=== PATIENT | male | born 1950 | race Caucasian/White ===

== ENCOUNTER 2018-04-02 05:16 | Inpatient (IN) ==
[2018-04-02] MEDS ORDERED: ceFAZolin Inj 2gm (Premix) 2 GM/50 ML BAG IV ONE ×2 (05:26→06:00)
[2018-04-02] MEDS ORDERED: Vancomycin Inj 1gm vial ONE ×2 (05:26→06:44)
[2018-04-02] MEDS ORDERED: Lactated Ringers 1,000 ML PRIMARY IV ONE ×2 (05:26→06:00)
[2018-04-02] MEDS ORDERED: LIDOCAINE W/ SODIUM BICARB 0.5 ML SYR ONE (05:27)
[2018-04-02] MEDS ORDERED: Sodium Chloride 0.9% 250 ML ONE (05:27)
[2018-04-02] MEDS ORDERED: Nasal Sanitizer POPSWAB ampule 3 AMP (Nozin) PREOP DOSE ENOS SCH (06:00)
[2018-04-02] MEDS ORDERED: LIDOCAINE W/ SODIUM BICARB 0.5 ML SYR SUBD ONE (06:00)
[2018-04-02] MEDS ORDERED: LIDOCAINE MPF 2% - 5 ML (20 MG/1 ML) ONE ×2 (06:12→07:00)
[2018-04-02] MEDS ORDERED: Sodium Chloride 0.9% vial 40 ML ONE ×2 (06:44→07:04)
[2018-04-02] MEDS ORDERED: Gentamicin Inj 40 MG/ML VIAL ONE (06:44)
[2018-04-02] MEDS ORDERED: BUPivacaine Liposome/PF (Exparel) Inj 20ml vial INFIL ONE (06:45)
[2018-04-02] MEDS ORDERED: BACITRACIN 50,000 UNIT VIAL IRRIG ONE (06:45)
[2018-04-02] MEDS ORDERED: BUPivacaine Inj 0.25% PF - 10ml vial ONE (06:45)
[2018-04-02] MEDS ORDERED: ROCURONIUM 10 MG/1 ML - 5 ML VIAL IVP ONE (06:58)
[2018-04-02] MEDS ORDERED: MIDAZOLAM HCL 2 MG/2 ML VIAL ONE (06:59)
[2018-04-02] MEDS ORDERED: fentaNYL Inj 250 MCG/5 ML VIAL ONE (06:59)
[2018-04-02] MEDS ORDERED: PROPOFOL 10 MG/1 ML (200 MG/20 ML) VIAL IV ONE (07:00)
[2018-04-02] MEDS ORDERED: Propofol 1,000 MG/100 ML VIAL IV ONE ×2 (07:01→10:58)
[2018-04-02] MEDS ORDERED: REMIFENTANIL HCL 2 MG VIAL IV ONE (07:03)
[2018-04-02] MEDS ORDERED: LIDOCAINE HCL 2 % 10 ML JELLY URO-JECT TOPICAL ONE ×2 (07:20→07:42)
[2018-04-02] MEDS ORDERED: ePHEDrine Inj 50 MG/ML AMP ONE (08:03)
[2018-04-02] MEDS ORDERED: Sodium Chloride 0.9% 1,000 ML PRIMARY IV ONE ×2 (08:20→09:12)
[2018-04-02] MEDS ORDERED: KETAMINE HCL 100 MG/2 ML SYRINGE IV ONE (08:21)
[2018-04-02] MEDS ORDERED: ONDANSETRON 4 MG/2 ML VIAL ONE (12:13)
[2018-04-02] MEDS ORDERED: HYDROmorphone 2 MG/1 ML ONE (13:40)
[2018-04-02] MEDS: HYDROmorphone 2 MG/1 ML IVP PRN ×2 (13:41→14:11)
[2018-04-02] MEDS ORDERED: LIDOCAINE W/ SODIUM BICARB 0.5 ML SYR SUBD PRN (13:43)
[2018-04-02] MEDS ORDERED: PROMETHAZINE 25 MG/1 ML VIAL IM PRN ×2 (13:43→15:03)
[2018-04-02] MEDS ORDERED: fentaNYL Inj 100 MCG/2 ML VIAL IVP PRN (13:43)
[2018-04-02] MEDS ORDERED: ONDANSETRON 4 MG/2 ML VIAL IVP PRN ×2 (13:43→15:03)
[2018-04-02] MEDS ORDERED: Lactated Ringers 1,000 ML PRIMARY IV SCH (13:45)
[2018-04-02] MEDS ORDERED: TRANEXAMIC ACID 1,000 MG / 10 ML VIAL ONE (14:43)
[2018-04-02] MEDS ORDERED: Insulin Glargine SoloStar Inj 100 UNIT/ML INSULN.PEN SUBCUT SCH ×2 (15:03→19:00)
[2018-04-02] MEDS ORDERED: MAGNESIUM 400 MG/5 ML - 30 ML (MILK OF MAGNESIA) PO PRN (15:03)
[2018-04-02] MEDS ORDERED: Fleet Enema 133ml RECTAL PRN (15:03)
[2018-04-02] MEDS ORDERED: Vancomycin-PHA to Dose IV SCH (15:03)
[2018-04-02] MEDS ORDERED: oxyCODONE/APAP 7.5/325 Tab 1 TAB TAB PO PRN (15:03)
[2018-04-02] MEDS ORDERED: MAGNESIUM CITRATE 296 ML SOLUTION PO PRN (15:03)
[2018-04-02] MEDS ORDERED: BISACODYL 5 MG TABLET PO PRN (15:03)
[2018-04-02] MEDS ORDERED: oxyCODONE-ACETAMINOPHEN 5-325 TAB PO PRN (15:03)
[2018-04-02] MEDS ORDERED: Prochlorperazine Edisylate Inj 10mg/2ml vial IVP PRN (15:03)
[2018-04-02] MEDS ORDERED: Ondansetron ODT Tab 4 MG TAB PO PRN (15:03)
[2018-04-02] MEDS: MORPHINE SULFATE 2 MG/1 ML IVP PRN ×2 (15:25→19:21)
[2018-04-02] MEDS: oxyCODONE/APAP 10/325 Tab 1 EACH TAB PO PRN ×3 (15:52→20:56)
--- NOTE | 2018-04-02 16:49 | CRNA.PROGR ---
Anesthesia Recovery Phase I - Post Anesthesia Evaluation Patient's Condition on Arrival in Phase I: Stable Pain Level: 0
--- NOTE | 2018-04-02 16:49 | CRNA.PROGR ---
Anesthesia Time - Procedure/Recovery Time Start Date: 04/02/18 End Date: 04/02/18 Anesthesia : Time In: 07:29 Anesthesia : Time Out: 13:17 Anesthesia : Total Time: 348 - Total Anesthesia Time Total Anesthesia Time (minutes): 348 - Other Weight: 87.543 kg Height: 5 ft 8 in Body Mass Index (BMI): 29.3 Physical Status: P3 Anesthesia Type: General Anesthesia : ET
[2018-04-02] MEDS: ceFAZolin Inj 1 GM in Sodium Chloride 0.9% 100 ML IV SCH (17:23)
--- NOTE | 2018-04-02 18:03 | CONSULT ---
Consult Note - Consult Consult Date: 04/02/18 Requesting Physician: Dr. 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 Juárez today. The hospitalist service were consulted for management of medical issues. Patient was seen postoperatively he denied symptoms apart from pain his back and he received some pain medication prior. There is no nausea, no shortness of breath, no chest pain. Past Medical History Medical History: 1. History of diabetes been insulin since November last year. 2. History of hypertension. 3. History of hypercholesterolemia. 4. History of autoimmune disorder on Remicade infusion every 4 weeks, it sounded seronegative arthropathy Surgical History: 1. History of cholecystectomy. 2. History of carpal tunnel releases. 3. History of hernia surgery. 4. History of back surgery Family History: Reviewed an Not Pertinent Past Social History: He smokes 8 cigarettes a day, rarely drinks, no drugs. Lives in [place] Tobacco Use: Current Every Day Smoker In the Past 12 Months, Have Used or Abuse Any of the Following Substance: None Review of Systems - Review of Systems All Systems: Reviewed & No Additional Complaints Except as Stated Medication / Allergies Home Medications: Home Medications Medication Instructions Recorded Confirmed Type Lansoprazole [Prevacid] 30 mg ORAL BID cap 12/28/10 04/02/18 History Ramipril [Altace] 10 mg ORAL BID cap 12/28/10 04/02/18 History Simvastatin [Zocor] 80 mg ORAL DAILY tab 12/28/10 04/02/18 History Ezetimibe [Zetia] 10 mg PO DAILY 01/12/11 04/02/18 History infliximab 100 mg intravenous 100 mg IV Q4W ea 01/28/18 04/02/18 History solution insulin glargine (U-100) 100 54 unit SUBCUT QDAY ml 03/25/18 04/02/18 History unit/mL (3 mL) subcutaneous pen Hydrocodone/Acetaminophen 1 tab PO PRN PRN 04/01/18 04/02/18 History [Hydrocodone-Acetamin 5-325 mg] Insulin Glargine,Hum.rec.anlog 54 unit SQ DAILY 04/02/18 04/02/18 History [Basaglar Kwikpen U-100] Allergies/Adverse Reactions: Allergies Allergy/AdvReac Type Severity Reaction Status Date / Time codeine [Codeine] Allergy Intermediate NAUSEA Verified 04/01/18 08:48 abatacept [From Orencia] Allergy Nausea Verified 04/02/18 05:57 CONTRAST DYE Allergy Intermediate Anaphylaxis Uncoded 04/01/18 08:48 Exam - Vitals Vital Signs: Vital Signs Temperature 97 F Temperature Source Tympanic Pulse Rate [Pulse Oximeter] 58 Pulse Rate 72 Respiratory Rate 14 Blood Pressure [Left Arm] 108/68 Blood Pressure 106/81 Pulse Ox 100 Oxygen Flow Rate 2 Oxygen Delivery Method Nasal Cannula Height 5 ft 8 in Weight 193 lb - General General Appearance: No Acute Distress, Cooperative - Head Head Exam: Normal Inspection - Eye Eye Exam: POSITIVE: Normal Appearance - ENT ENT Exam: POSITIVE: Normal Exam - Respiratory Respiratory Exam: POSITIVE: Clear to Auscultation - Bilaterally - Cardiovascular Cardiovascular Exam: POSITIVE: RRR - GI/Abdominal GI/Abdominal Exam: POSITIVE: Normal Bowel Sounds, Non Tender, Non Distended, Soft, No Organomegaly - Rectal Rectal Exam: POSITIVE: Deferred - External Exam: POSITIVE: Deferred - Extremities Extremities Exam: POSITIVE: Normal Inspection Additional Extremities Exam Details: He is wearing LEIDA hose - Back Back Exam: POSITIVE: Normal Inspection - Neurological Neurological Exam: POSITIVE: Alert, Oriented x 3, CN II-XII Intact, No Facial Droop, Speech Intact / Clear - Psychiatric Psychiatric Exam: POSITIVE: Normal Affect Assessment and Plan - Patient Problems (1) History of diabetes mellitus, type II Current Visit: Yes Status: Acute Comment: Continue his previous medication will put Accu-Chek for him to check his blood sugar. Patient already ate. Code(s): Z86.39 - Personal history of other endocrine, nutritional and metabolic disease (2) History of hypertension Current Visit: Yes Status: Acute Comment: He is normally on Altace continue with it but I think for tonight I think we'll hold it as his blood pressure postsurgery is borderline. Code(s): Z86.79 - Personal history of other diseases of the circulatory system (3) Hypercholesterolemia Current Visit: Yes Status: Acute Comment: Same medication. Code(s): E78.00 - Pure hypercholesterolemia, unspecified (4) Back pain Current Visit: Yes Status: Acute Comment: Status post surgery management per Dr. Juárez he did write for pain medication for him and he consulted PT and OT. Code(s): M54.9 - Dorsalgia, unspecified
[2018-04-02] MEDS: INSULIN GLARGINE SUBCUT SCH (19:16)
[2018-04-02] MEDS: [UNRECOGNIZED DRUG - OTHER] SUBCUT SCH (19:16)
[2018-04-02] MEDS: DIAZEPAM 10 MG TABLET PO PRN (19:34)
--- NOTE | 2018-04-02 20:07 | NEURO.PROG ---
Subjective Post Op Day: 0 Pain Management: PO Banks Catheter: Yes Diet: Consistent carbohydrate Ambulating: Yes Additional Details: Awake and alert. Complaint of back pain. Pre-operative leg symptoms, pain, numbness, tingling resolved. Full dorsiflexion/plantarflexion bilaterally. PLAN; 1.) Continue post-operative antibiotics. 2.) Continue post-operative pain control. 3.) Advance diet. 4.) Mobilize. Objective : Data - Vital Signs Vital Signs and I&O: Vital Signs - Last Taken Temperature 97.8 F 04/02/18 17:30 Pulse Rate 77 04/02/18 17:30 Respiratory Rate 16 04/02/18 17:30 Blood Pressure 130/82 04/02/18 17:30 Pulse Ox 100 04/02/18 17:30 Intake and Output (24hr x 4 totals) 03/31/18 04/01/18 04/02/18 04/03/18 05:59 05:59 05:59 05:59 Intake Total 4500 / 4500 Output Total 980 / 980 Balance 3520 / 3520
[2018-04-02] MEDS ORDERED: RAMIPRIL 10 MG CAPSULE PO SCH (21:00)
[2018-04-02] MEDS: Simvastatin Tab 80 MG TAB PO SCH (22:00)
[2018-04-02] MEDS: NICOTINE 21 MG /DAY PATCH TRANSDERM SCH (22:01)
[2018-04-03] MEDS: ceFAZolin Inj 1 GM in Sodium Chloride 0.9% 100 ML IV SCH (00:50)
[2018-04-03] MEDS: oxyCODONE/APAP 10/325 Tab 1 EACH TAB PO PRN ×3 (00:50→09:07)
[2018-04-03] MEDS: DOCUSATE 100 MG CAPSULE PO PRN (04:46)
[2018-04-03] MEDS: DIAZEPAM 10 MG TABLET PO PRN (04:47)
[2018-04-03 04:59] LABS: BASOPHILS # (AUTO) 0.03 10*3/UL; BASOPHILS % (AUTO) 0.1 % (0-1); EOSINOPHILS # (AUTO) 0.06 10*3/UL; EOSINOPHILS % (AUTO) 0.3 % (0-8); Hematocrit [HCT] 47.3 % (42.0-52.0); Hemoglobin [HGB] 15.9 g/dL (14.0-18.0); LYMPHOCYTES # (AUTO) 3.48 10*3/uL; MEAN CORPUSCULAR HGB CONC 33.6 g/dL (33-37); MEAN CORPUSCULAR VOLUME 89.2 FL (80-90); MEAN PLATELET VOLUME 10.6 FL (7.4-12.2); MONOCYTES # (AUTO) 2.36 10*3/UL (0.3-0.8); MONOCYTES % (AUTO) 10.6 % (5-15); NEUTROPHILS # (AUTO) 16.27 10*3/UL
[2018-04-03 05:25] LABS: BLOOD UREA NITROGEN 15 mg/dL (7-22); BUN/CREATININE RATIO 16.66 (6-20)
--- NOTE | 2018-04-03 06:23 | NEURO.PROG ---
Subjective Post Op Day: 1 Pain Management: PO Singh Catheter: Yes Diet: Regular Additional Details: Mr. Hastings is awake and alert. He complained of feeling weak in all extremities but denies paresthesias. His dorsi and plantar flexion are strong bilaterally. He had a fever of 100 in the night that normalized with standing at the bedside and taking deep breaths. He has had minimal drainage from his wound drain and plan will be to discontinue the drain after he has been up in the room this morning. Plan for today is to mobilize. After he's been up this morning the plan will be to discontinue his singh catheter. Dr. Juárez was here for rounds. Objective : Data - Labs CBC and BMP: 04/03/18 04:35 - Vital Signs Vital Signs and I&O: Vital Signs - Last Taken Temperature 97.4 F 04/03/18 05:02 Pulse Rate 84 04/03/18 04:21 Respiratory Rate 16 04/03/18 04:21 Blood Pressure 125/74 04/03/18 04:21 Pulse Ox 93 04/03/18 04:21 Intake and Output (24hr x 4 totals) 04/01/18 04/02/18 04/03/18 04/04/18 05:59 05:59 05:59 05:59 Intake Total 6550 / 6550 Output Total 1830 / 1830 Balance 4720 / 4720
[2018-04-03 06:25] LABS: PLATELET MORPHOLOGY COMMENT NORMAL MORPHOLOGY (NORM); RBC MORPHOLOGY COMMENT NORMAL MORPHOLOGY (NORM); WBC MORPHOLOGY COMMENT NORMAL MORPHOLOGY (NORM)
[2018-04-03] MEDS: PANTOPRAZOLE 40 MG TABLET PO SCH (06:54)
[2018-04-03] MEDS: EZETIMIBE 10 MG TABLET PO SCH (09:08)
[2018-04-03] MEDS: RAMIPRIL 10 MG CAPSULE PO SCH ×2 (09:08→20:03)
--- NOTE | 2018-04-03 09:09 | PTI REPORT ---
Thank you for the referral of Stephen Hastings. He was seen on 04/02/18 for an inpatient evaluation status post lumbar fusion. SUBJECTIVE: The patient is a 67-year-old male who underwent a lumbar fusion earlier today. The patient reports a pain level of 9/10 on the verbal analog scale (0=no pain, 10=worst pain) at this time. Per nursing report, he has had Morphine. They have discussed with the patient about trying to sit up and that maybe a change in his position may help decrease his pain. The patient states he is willing to try to sit up on the edge of the bed. The patient states he is from [place] where he lives in a ranch style home. He states he was not using any assistive devices prior to his surgery. He also reports no falls in the last three months. The patient states that prior to his surgery he was independent with all ADLs. He states that he was limited with his walking prior to surgery secondary to back pain. He reports he was able to walk approximately 250 feet before requiring a rest break due to pain. The patient also states that he was having numbness, tingling, and weakness into his bilateral lower extremities with his right more affected vs. his left. PAST MEDICAL HISTORY: Past medical history can be found in the patient's medical record. OBJECTIVE FINDINGS: General observations: The patient was alert and oriented to setting upon PT arrival. Nursing was just finishing admitting the patient. We did discuss to have the patient try sitting edge of bed to see if that would help with his pain as he reports a pain level of 9/10. The patient's blood pressure was 125/82. His heart rate was 70 beats per minute. His oxygen saturation was 97% on two liters of oxygen. The patient was instructed on lumbar precautions including no bending/lifting/twisting and to always wear his brace when he is up. The patient's brace was in his room and he was fit for that prior to his surgery. The patient was instructed on gentle nerve glides and the importance of getting up and walking along with how to properly log roll into and out of bed. It was demonstrated how to log roll out of bed. Bed mobility: The patient required max cueing to go from a supine position to roll onto his left side. Once the patient was on his left side, he attempted to complete the log roll but was unable to secondary to weakness so he did require mod assist of one in order to help maneuver his trunk as he brought his legs down. The patient was able to sit for approximately one second before he flung himself back onto the bed, stating that he had intense pain down his left lower extremity when he first sat up. The patient was then assisted to help roll completely back onto his back. The patient required assist of two in order to perform bed mobility to scoot up in the bed. The patient did complain of pain, and due to weakness, states that he was not able to perform bed mobility. Once he was scooted back up into the bed, his SCDs were plugged back in, a rolled up blanket was placed underneath his lower extremities, and the head of the bed was elevated. The patient did state a slight improvement in pain with the head of the bed elevated. We further elevated that once his dinner did arrive toward the end of the treatment. ASSESSMENT: The patient has fair rehab potential secondary to his age and his pain level that he is having at this time. Problem List: Patient is status post lumbar fusion Low back pain Weakness of bilateral lower extremities Short-Term Goals: To be met by discharge from inpatient: Patient will be able to don and doff his brace safely and independently. Patient will be able to perform a log roll into and out of bed safely, correctly, and independently. Patient will be able to ambulate at least 150 feet with least restrictive assistive device safely and independently. Patient will be able to ascend and descend at least 5 stairs safely and independently in order to return back home. Long-Term Goals: To be met following discharge from inpatient: Patient may be seen by outpatient physical therapy if deemed necessary by his surgeon. TREATMENT PLAN: Patient will be seen B.I.D during the week and one time per day over the weekend as an inpatient to address the above goals and objectives. INITIAL TREATMENT: Treatment today consisted of the initial evaluation and one unit of functional activity. The therapist did bring a walker into the room and the patient's brace is in the room. That way as his pain is under better control later this evening, he will be allowed to get up with nursing staff as long as his brace is in place. He most likely will need the use of the walker due to the weakness in his lower extremities for the first couple of times he is up. We will then assess further from there. LITTLE
--- NOTE | 2018-04-03 10:04 | PDOC(PROG) ---
Date of Service: 04/03/18 Time of Service: 09:30 Interval History: Subjective Patient was complaining from pain his back he just received some Percocet. He said last night he had some fever but apparently that's resolved today. No other symptoms. He Feels overall weak. Objective : Data - Labs CBC and BMP: 04/03/18 04:35 04/03/18 04:35 Objective : Exam - General General Appearance: No Acute Distress, Cooperative - Head Head Exam: Normal Inspection - Eye Eye Exam: Normal Appearance - ENT ENT Exam: Normal Exam - Neck Neck Exam: Normal Inspection - Respiratory Respiratory Exam: Clear to Auscultation - Bilaterally - Cardiovascular Cardiovascular Exam: RRR - GI/Abdominal GI/Abdominal Exam: Normal Bowel Sounds, Non Tender, Non Distended, Soft, No Organomegaly - Rectal Rectal Exam: Deferred - External Exam: Deferred Exam: Deferred - Extremities Extremities Exam: Normal Inspection - Back Back Exam: Normal Inspection - Neurological Neurological Exam: Alert, Oriented x 3, CN II-XII Intact, No Facial Droop, Speech Intact / Clear - Psychiatric Psychiatric Exam: Flat Affect Assessment and Plan - Patient Problems (1) History of diabetes mellitus, type II Current Visit: Yes Status: Acute Comment: Continue current medications. Continue checking his blood sugars. Code(s): Z86.39 - Personal history of other endocrine, nutritional and metabolic disease (2) History of hypertension Current Visit: Yes Status: Acute Comment: We restarted his ramipril today Code(s): Z86.79 - Personal history of other diseases of the circulatory system (3) Hypercholesterolemia Current Visit: Yes Status: Acute Comment: Same med. Code(s): E78.00 - Pure hypercholesterolemia, unspecified (4) Back pain Current Visit: Yes Status: Acute Comment: Status post surgery, management per Dr. Juárez. We will start PT and OT today. Code(s): M54.9 - Dorsalgia, unspecified (5) Leukocytosis Current Visit: Yes Status: Acute Comment: This may be secondary to the surgery. Will watch it. No fever today. 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 Code(s): D72.829 - Elevated white blood cell count, unspecified
--- NOTE | 2018-04-03 11:58 | GEN.OPNOTE ---
Operative Note Surgery Date: 04/02/18 Preoperative Diagnosis: 1. Low back pain. 2. Bilateral lower extremity radicular symptoms right greater than left. 3. Focal advanced lumbar degenerative disc disease at L4-5. 4. Focal moderately advanced facet arthropathy and hypertrophy particularly on the right at L4-5. 5. Broad based disc bulge with superimposed left lateral herniated nucleus pulposus L4-5. 6. Bilateral L4-5 lateral recess stenosis. 7. Bilateral L4-5 neural foraminal stenosis.1. Low back pain. 2. Bilateral lower extremity radicular symptoms right greater than left. 3. Focal advanced lumbar degenerative disc disease at L4-5. 4. Focal moderately advanced facet arthropathy and hypertrophy particularly on the right at L4-5. 5. Broad based disc bulge with superimposed left lateral herniated nucleus pulposus L4-5. 6. Bilateral L4-5 lateral recess stenosis. 7. Bilateral L4-5 neural foraminal stenosis. Postoperative Diagnosis: 1. Low back pain. 2. Bilateral lower extremity radicular symptoms right greater than left. 3. Focal advanced lumbar degenerative disc disease at L4-5. 4. Focal moderately advanced facet arthropathy and hypertrophy particularly on the right at L4-5. 5. Broad based disc bulge with superimposed left lateral herniated nucleus pulposus L4-5. 6. Bilateral L4-5 lateral recess stenosis. 7. Bilateral L4-5 neural foraminal stenosis. Procedure: 1.) Partial L4 laminectomy with medial facetectomies and foraminotomies for decompression of the L4-5 level including removal of a left L4-5 herniated nucleus propulsis and removal of bony arthropathy of the facet joints and ligamentous hypertrophy producing bilateral lateral recess and neuroforaminal stenosis. (CPT code: 43470). 2.) Athrodesis, combined posterolateral and posterior interbody technique, L4-5. (CPT code: 68014). 3.) Insertion of an 9 mm x 11 mm x 28 mm Tritanium PL titanium interbody cage filled in the center with autograft into the L4-5 interspace for fusion of the L4-5 interspace. (CPT code: 38815). 4.) Posterolateral non-segmental instrumentation, L4-5 using the Footway Sukhjinder 3 pedicle screw and leora system. (CPT code: 57906). 5.) Use of autograft harvested from the same incision cleaned of soft tissue and morselized for interbody and posterolateral fusion. (CPT code: 12099). 6.) Use of 10 cc StNing by [employer] Vitoss Bimodal synthetic bone fusion product (implantable allograft), 2 cc Jt Biologics Active Matrix (implantable allograft), 30 cc Ni BIO DBM Plus Putty w/Cancellous (implantable allograft) for interbody and posterolateral fusion. (CPT code: 14372). 7.) Use of Bitvore Computer Assisted Neuronavigation system for cannulization of the L4 and L5 pedicles for the subsequent placement of the the L4 and L5 pedicle screws bilaterally. (CPT code: 63851). 8.) Use of intra-operative fluoroscopy for localization or correct surgical level, for confirmation of the final position of the intervertebral cage and for confirmation of the final position of the posterolateral hardware elements. 9.) Use of intra-operative neuromonitoring including free running EMG's, triggered EMG's, and SSEP's. Surgeon: Matthew Juárez MD Quality Assistant: ALESSIA Briseno Anesthesia Provider: Dez Jackson CRNA Anesthesia Type: General Estimated Blood Loss (mL): 300 Fluids: See anesthesia record Pathology: None Indications: Mr. Hastings is a 67 year old gentleman with low back and bilateral leg pain. He has pain that runs down both of his legs with the right being worse than the left. He can only walk for about 500 feet before his pain is so severe that he needs to sit down. He reports bilateral leg weakness and stumbles often when walking. Mr. Hastings has had previous back surgery, a L5-S1 microlumbar discectomy performed by Dr. Gonzalez in 2004. He did well after that surgery. Mr. Hastings had a recent lumbar MRI scan demonstrating advanced degenerative disc disease at the L4-5 level. There is broad based disc protrusion at this level and there is herniated disc material laterally on the left that extends into the lateral recess medial to the left L5 pedicle. There is bilateral lateral recess stenosis secondary to bony arthropathy and hypertrophy with a broad based disc bulge and ligamentous hypertrophy. There is bilateral L4 neural foraminal stenosis secondary to the collapse of the disc space and also disc material in the proximal neuroforamen. Mr. Hastings symptom's did not receive any durable relief expectant managment or non-operative therapies. We discussed that a L4-5 transforaminal lumbar interbody fusion and posterolateral instrumented fusion might give him durable relief of his symptoms. He wished to proceed with that procedure. He presents today, 04/02/18 for that procedure. Findings: 1.) Left paracentral L4-5 herniated nucleus propulsis. 2.) Marked bilateral L4-5 facet arthropathy and hypertrophy. 3.) Bilateral lateral recess stenosis secondary to bony arthropathy and ligamentous hypertrophy. Complications: None Operative Summary: Mr. Hastings was met in the pre-operative area. His surgical history and physical in his chart was reviewed. I reviewed with him the procedure to be performed and we were in agreement on the procedure and this matched what was written on the patient's consent form. I answered any questions that he or his had before he was taken back to the operating room suite. Mr. Hastings was brought back to the operating room suite. He was put under general anesthesia and intubated by the anesthesia staff. He had a Banks catheter placed in his bladder for the procedure. He had pneumatic compression hose placed on his lower legs bilaterally. Mr. Hastings was carefully rolled over onto the Ankush surgical table. His arms were gently positioned upwards with his shoulders abducted less than 90. His arms were well-padded with foam padding on top of the padding the surgical armboards. The region of his chest and axilla was checked bilaterally to make sure that there were no pressure points over the region of the brachial plexus bilaterally. His nipples were checked be below the chest pad of the Ankush table with no pressure points. All bony prominences were well padded. His Banks catheter was checked be free from kinks. His pneumatic compression hose was attached to a pneumatic compression device. The C-arm fluoroscopy unit was used to help localize the skin incision for the approach to the intended surgical level. The skin was marked with a skin marker and crosshatches were made with a skin marker as well. Ms. Hastings was prepped and draped in the usual and standard fashion. He was given 2 g of Ancef and a gram of vancomycin IV for perioperative antibiosis. A standard surgical timeout was performed identifying the correct patient, the correct procedure, and the correct equipment being available for the procedure. The intended skin incision was injected subcutaneously with quarter percent Marcaine with 1 in 200,000 epinephrine. 10 mL of local anesthetic was used. The skin was incised with a 10 blade scalpel and all dermal and superficial bleeding points were controlled with bipolar cautery. Dissection was continued down to the subcutaneous tissue to the lumbar fascia. The lumbar fascia was incised along the borders of the spinous processes and subperiosteal dissection was performed down the spinous processes and out over the lamina with Bovie cautery. When the inferior aspect of the lamina was identified a [place] 4 was placed underneath the lamina and the level was localized with lateral fluoroscopy. Continued subperiosteal dissection was performed until the final exposure was of the inferior aspect the L3 lamina, the L4 lamina, and the L5 lamina. The dissection was continued laterally over the L3-4 and L4-5 facet joints and out laterally over the L4 and L5 transverse processes. Cerebellar and Gelpi retractors were placed for self-retaining retraction. Soft tissue was cleaned over the posterior aspect of the spine using Bovie cautery as well as a large Leksell rongeur. Extensive decortication of the L4 and L5 transverse processes as well as the lateral aspect of the L3-4 facet joint and the lateral and posterior aspect of the L4-5 facet joint after removing the hypertrophied posterior aspect of the L4-5 facet joint with a large Leksell rongeur bilaterally was performed. The L5 lamina was decorticated as well. All decortication was performed with a high-speed [employer] electric drill with a matchstick bit. The bone dust created was collected and saved to be used as autograft for the fusion portion of the procedure. The Ni neuro navigation reference arc was securely attached to the L3 spinous process and a spin was performed with the [employer] 3-D fluoroscopy unit. The Footway neuro navigation pedicle probe was then used to cannulate the L4 and L5 pedicles bilaterally. A Jamshidi needle was then inserted into the left L4 pedicle and 5 mL of vertebral body bone marrow was collected and used to saturate 10 mL of the [place] Vitoss synthetic bone product intended for the posterior lateral fusion. The internal aspects of the pedicles were palpated with a small ball-tip instrument. The pedicles were then tapped with the appropriate size [place] Sukhjinder 3 pedicle tap. The internal aspect of the pedicles were palpated with a small ball-tip instrument again. The pedicle screws were then placed. 6.5 x 60 mm pedicle screws were placed into the L4 pedicles bilaterally. 6.5 mm x 55 mm pedicle screws were placed into the L5 pedicles bilaterally. The pedicle screws obtained good purchase in the pedicle and vertebral body bone at each level bilaterally. The pedicle screws were then interrogated with triggered EMGs all demonstrating sufficiently high impedance indicating that the pedicle screws were not in close proximity to nerve structures. Another spin was performed with the [employer] 3-D fluoroscopy unit providing further confirmation that the pedicle screws were indeed confined within the confines of the pedicles at each level bilaterally and that the pedicle screws were all bi-cortical or nearly bi-cortical in purchase as intended. Attention was turned to the decompression portion of the procedure. The L4 spinous process was removed with a large Leksell rongeur. The L4 lamina was thinned down with the same instrument. A partial laminectomy of L4 with medial facetectomies and foraminotomies bilaterally was then performed with the [employer] high-speed drill with a matchstick bit as well as with various size Kerrison punches. Surgical findings included marked arthropathy and hypertrophy of the L4-5 facet joints bilaterally, central canal stenosis, severe bilateral lateral recess stenosis and severe bilateral neuroforaminal stenosis secondary to bony arthropathy and ligamentous hypertrophy. The medial facetectomy on the left was extended laterally to provide the proper exposure needed for the interbody fusion intended for this level. The lateral extension of the medial facetectomy was performed with a high-speed drill with a matchstick bit. A [place] 4 instrument was used to carefully dissect the soft tissue adjacent to the takeoff of the L5 nerve root identifying the L4-5 disc space. The Rico nerve root retractor was used to gently retract the thecal sac and the takeoff the L5 nerve root and epidural veins over the disc space were coagulated with bipolar cautery turned down to a low setting and then cut with microscissors. An annulotomy was performed in the L4-5 disc space with a 15 blade scalpel and disc material being removed with a pituitary rongeur. Additional disc and cartilaginous endplate was loosened in the disc space using the K2 disc space khurram in 1 mm increments from 7 mm disc space shaver to a 9 mm disc space shaver. Between the disc space khurram additional disc material was removed from the interspace using pituitary rongeur. The large Rolando down-biting curet was used to loosen disc laterally in the L4-5 disc space bilaterally with the fragments being removed with a pituitary rongeur. The large Rolando down-biting curet was then used to decorticate the inferior L4 endplate and the superior L5 endplate in the L4-5 interspace. The interspace was then irrigated with bacitracin irrigation. Approximately 3-3.5 cc of Ni BIO DBM Plus Putty w\Cancelleous (implantable allograft) was then placed in the interspace and moved anteriorly with a bone tamp. The interspace was then sized for the appropriate size lumbar interbody cage. A 9 mm x 11 mm x 28 mm Tritanium PL titanium lumbar interbody cage was selected and filled in the center with autograft and inserted into the L4-5 interspace using the regulator pin inserter. The cage was gently countersunk and rotated with a bone tamp and mallet. The cage obtained good purchase between the L4 and L5 endplates. The final position of the intervertebral cage was confirmed with lateral fluoroscopy. Attention was turned back to the leads rotation portion of the procedure. Two 6.0 mm x 40 mm pre-bent Ni Sukhjinder 3 titanium leora were selected and placed in the tulips of the L4 and L5 pedicle screws bilaterally. Set screws were placed over the rods in the tulips of each of the pedicle screws which were tightened down hand tight initially and then tightened down to their final tightness using the torque/counter torque device. The surgical site was irrigated with a liter of Vashe solution . The surgical site was then pulse lavaged with 3 L of vancomycin/bacitracin/gentamicin solution. The paraspinous musculature was retracted and 10 mL of [place] Vitoss Bimodal synthetic bone product (implantable allograft) saturated with 5 mL of vertebral body bone marrow and 5 mL of 2cc of RewardLoop Biologics Active Matrix (implantable allograft) diluted to 8 mL was then placed lateral to the hardware construct on each side from the L4 transverse process to over the L5 transverse process bilaterally. The remaining autograft was then split and placed lateral to the hardware construct as well. The remaining approximately 27 mL of Ni BIO DBM Plus Putty w/Cancelleous (implantable allograft) was then split with half of this product being placed lateral to the hardware construct over the bone chips and Vitoss synthetic bone product from the L4 transverse process to the L5 transverse process bilaterally to provide extra bone product for fusion and also told bone chips in place. The canal lateral recesses were inspected for any bone chips and any identified were removed with forceps. The canal lateral recesses were then irrigated with a small amount bacitracin irrigation which was subsequently removed with suction. Floseal hemostatic agent was then placed in the lateral recesses and over all exposed dural elements. A piece of compressed Gelfoam was then placed across the canal. A medium Hemovac drain was placed in the surgical site. The closure portion of the procedure was begun. The lumbar fascia was closed tightly with #1 Vicryl suture in an interrupted fashion. The surgical site was irrigated again with bacitracin irrigation. The deep subcutaneous tissue and fascia was re-approximated with 2-0 Vicryl suture in an interrupted fashion. 20 mL of Exoperel diluted with 20 mL of 1/4 percent Marcaine was then injected all around the incision in the subcutaneous tissue. The remaining 3 mL of the diluted RewardLoop Biologics Active Matrix was injected around the surgical site in the subcutaneous tissue. The dermis and superficial subcutaneous tissue was reapproximated with 3-0 Vicryl suture in an inverted interrupted fashion. The [place] drape was pulled back from the skin edges and the final layer of closure was performed surgical stainless steel bree. The incision was cleansed with bacitracin soaked sponge and then dried with sterile dry sponge. The incision was then dressed with a Covaderm dressing after using skin prep around the incision. All surgical drapes removed from Mr. Hastings. He was carefully rolled over onto the PACU stretcher. He was awoken and extubated by the anesthesia staff. he was taken the recovery room in stable condition. All surgical counts reported as correct by the scrub and circulating personnel. A physician's customer assistant, Mrs. Candi Crane PA-C, assisted with the procedure including the exposure and closure portions of the procedure. She provided irrigation and suctioning throughout the procedure. She skillfully and carefully retracted the nerve structures during the more critical portions of the procedures such as the discectomy and intervertebral cage placement portions of the procedure.
--- NOTE | 2018-04-03 14:17 | PT AM DAY ---
Diagnosis : Lumbar Fusion AM - Physical Therapy S: The patient reports he doesn't feel like he will be able to get up on his own, let alone do any ambulatory activities that nursing and therapy want. O: Therapy started with reviewing the criteria to be met for discharge home, which he had a verbal understanding of. The patient was asked to transfer himself from supine to edge of bed, which took the patient longer than 10 minutes with constant verbal cues for proper lumbar precautions and ultimately required max assist x1. While in the seated position we attempted to don the back brace that the patient had been fitted to prior to surgery and that he insisted on having; however, he was unable to don or doff the brace which no longer fit due to the bloating from surgery. The patient insisted on having a larger size. Both the patient and his were given verbal education on being charged out a second back brace. When the XL [place] back brace came, the patient was unable to help with any type of donning and it was dependently placed on the patient by the therapist with verbal education to the spouse. The patient performed two sit to stand transfers with verbal and tactile cues for proper hand placement. He was able to stand at best up to 45 seconds before an uncontrolled fall back into bed. Our goal was to ambulate or at least have a weight on the scale; however, the patient was unable to perform any walker mobility due to overall fatigue. The patient was sat edge of bed and required max assist x2 for bed mobility from edge of bed to supine. A: Nursing was notified of the patient's condition and she contacted and spoke with Dr. Juárez as well as Candi Crane and there was nothing in surgery that should be causing his overall weakness. It was decided that it was due to his excessive placement of pain medication. It should be noted that throughout the entire treatment today the patient did not complain of pain, just complaints of weakness. The patient's spouse was present and she states prior to surgery the patient was able to perform all bed mobility, ambulatory activities, and transfers independently without any difficulty. It was decided with nursing that they were going to decrease the amount of pain medication being used and hopefully the patient's physical abilities will increase and we will progress with more functional activities including ambulatory activities within his room as well as stepping up on the scale and transferring to the chair. P: Continue seeing patient BID during the week and one time per day over the weekend for transfers, ambulation, and range of motion/strengthening exercises. MTDD
[2018-04-03] MEDS: HYDROcodone-APAP 5 MG -325 MG TABLET PO PRN ×2 (14:19→18:17)
--- NOTE | 2018-04-03 15:12 | PT.PROG ---
Progress Note Progress Note: S. Patient stated he is feeling much better than this morning, he rates his pain as a 6/7 out of 10. O. Patient performed log roll then stood at the edge of bed then stepped up onto the scale and ambulated 8 feet then sat in the chair where he was left with nursing. A. Patient tolerated bed mobility and ambulation fair, he was struggling with weakness during ambulation and had to sit. He would continue to benefit from skilled therapy to increase strength, mobility and safety at this time. P. Continue POC.
[2018-04-03] MEDS: Simvastatin Tab 80 MG TAB PO SCH (20:02)
[2018-04-03] MEDS: INSULIN GLARGINE SUBCUT SCH (20:03)
[2018-04-03] MEDS: [UNRECOGNIZED DRUG - OTHER] SUBCUT SCH (20:03)
[2018-04-03] MEDS: NICOTINE 21 MG /DAY PATCH TRANSDERM SCH (20:03)
[2018-04-03] MEDS: Patch Removal PATCH TRANSDERM SCH (20:04)
[2018-04-03] MEDS ORDERED: Acetaminophen 1000mg Inj 1,000 MG/100 ML VIAL IV PRN (20:48)
[2018-04-03] MEDS: HYDROcodone-APAP 10 MG-325 MG TABLET PO PRN (21:03)
[2018-04-04] MEDS: HYDROcodone-APAP 10 MG-325 MG TABLET PO PRN ×5 (02:19→20:06)
[2018-04-04 05:30] LABS: BASOPHILS # (AUTO) 0.02 10*3/UL; BASOPHILS % (AUTO) 0.1 % (0-1); EOSINOPHILS # (AUTO) 0.09 10*3/UL; EOSINOPHILS % (AUTO) 0.6 % (0-8); Hematocrit [HCT] 43.3 % (42.0-52.0); Hemoglobin [HGB] 14.3 g/dL (14.0-18.0); LYMPHOCYTES # (AUTO) 2.38 10*3/uL; MEAN CORPUSCULAR HEMOGLOBIN 29.8 PG (27-31); MEAN CORPUSCULAR VOLUME 90.2 FL (80-90); MEAN PLATELET VOLUME 10.8 FL (7.4-12.2); MONOCYTES # (AUTO) 1.57 10*3/UL (0.3-0.8); NEUTROPHILS # (AUTO) 11.55 10*3/UL; NEUTROPHILS % (AUTO) 73.8 % (50-80)
[2018-04-04 05:46] LABS: PLATELET MORPHOLOGY COMMENT NORMAL MORPHOLOGY (NORM); RBC MORPHOLOGY COMMENT NORMAL MORPHOLOGY (NORM); WBC MORPHOLOGY COMMENT NORMAL MORPHOLOGY (NORM)
[2018-04-04] MEDS: PANTOPRAZOLE 40 MG TABLET PO SCH (07:14)
[2018-04-04] MEDS: RAMIPRIL 10 MG CAPSULE PO SCH ×2 (09:53→20:00)
[2018-04-04] MEDS: EZETIMIBE 10 MG TABLET PO SCH (09:54)
--- NOTE | 2018-04-04 10:37 | NEURO.PROG ---
Subjective Post Op Day: 2 Pain Management: PO Banks Catheter: No Flatus: Yes Diet: Regular Ambulating: Yes Additional Details: Mr Hastings is awake and alert, feeling much better today. He has strong dorsi and plantar flexion without paresthesias. He has ambulated in the cervantes to the desk. His V/S are stable and his incision is dry and intact. He has good bowel sounds and flatus. Will continue bowel protocol with the goal of bowel movement today. Plan is also to continue to mobilize. Plan for discharge Saturday at this point. Objective : Data - Labs CBC and BMP: 04/04/18 04:48 04/03/18 04:35 - Vital Signs Vital Signs and I&O: Vital Signs - Last Taken Temperature 98 F 04/04/18 06:28 Pulse Rate 84 04/04/18 06:28 Respiratory Rate 16 04/04/18 07:00 Blood Pressure 132/79 04/04/18 06:28 Pulse Ox 89 04/04/18 06:28 Intake and Output (24hr x 4 totals) 04/02/18 04/03/18 04/04/18 04/05/18 05:59 05:59 05:59 05:59 Intake Total 6550 / 6550 1590 / 1590 370 / 370 Output Total 1830 / 1830 1030 / 1030 150 / 150 Balance 4720 / 4720 560 / 560 220 / 220
--- NOTE | 2018-04-04 11:18 | PDOC(PROG) ---
Interval History: Patient is doing well postop no complaints other than some pain but he is getting medication for this no chest pain nausea or vomiting Objective : Data - Labs CBC and BMP: 04/04/18 04:48 04/03/18 04:35 Objective : Exam - Respiratory Respiratory Exam: Clear to Auscultation - Bilaterally, Breathing Non Labored, Normal To Percussion, Normal to Percussion and Palpation - Cardiovascular Cardiovascular Exam: RRR, No Murmur, No Clicks, No Gallops, No Rubs, PMI Non-Displaced - GI/Abdominal GI/Abdominal Exam: Normal Bowel Sounds, Non Tender, Non Distended, Soft, No Masses, No Hepatomegaly, No Splenomegaly, No Organomegaly Assessment and Plan - Patient Problems (1) History of diabetes mellitus, type II Current Visit: Yes Status: Acute Comment: Stable at present time Code(s): Z86.39 - Personal history of other endocrine, nutritional and metabolic disease (2) History of hypertension Current Visit: Yes Status: Acute Comment: Stable at present time Code(s): Z86.79 - Personal history of other diseases of the circulatory system (3) Hypercholesterolemia Current Visit: Yes Status: Acute Code(s): E78.00 - Pure hypercholesterolemia, unspecified (4) Back pain Current Visit: Yes Status: Acute Comment: Status post surgery and defer to neurosurgery team for PTOT and discharge orders and follow-up Code(s): M54.9 - Dorsalgia, unspecified (5) Leukocytosis Current Visit: Yes Status: Acute Comment: Most likely secondary to surgery improved today Code(s): D72.829 - Elevated white blood cell count, unspecified
--- NOTE | 2018-04-04 11:56 | PT.PROG ---
Progress Note Progress Note: S. Patient stated that he is feeling better this morning. O. Patient ambulated 60 feet in the cervantes and back to his room where he was left in his chair. A. Patient tolerated ambulation fair, he was able to ambulate with min assist and standard walker, however became fatigued within the last 10 feet to the chair, he became unsteady however was able to make it to the chair. He would continue to benefit from skilled therapy to increase strength, endurance and safety at this time. P. Continue POC.
--- NOTE | 2018-04-04 15:42 | PT.PROG ---
Progress Note Progress Note: S. Patient stated that he is not feeling well this afternoon, he agreed to walk however. O. Patient transferred from supine to standing then ambulated approximately 40 feet to the wheelchair and was wheeled to the shower where he was left with OT for further therapy. A. Patient tolerated ambulation poor, he was required min to mod assist with ambulation and became very fatigued and in the last 10 feet, he would continue to benefit from skilled therapy to meet established goals at this time. P. Continue POC.
[2018-04-04] MEDS: NICOTINE 21 MG /DAY PATCH TRANSDERM SCH (19:59)
[2018-04-04] MEDS: [UNRECOGNIZED DRUG - OTHER] SUBCUT SCH (19:59)
[2018-04-04] MEDS: INSULIN GLARGINE SUBCUT SCH (19:59)
[2018-04-04] MEDS: Simvastatin Tab 80 MG TAB PO SCH (20:00)
[2018-04-04] MEDS: Patch Removal PATCH TRANSDERM SCH (20:07)
[2018-04-05] MEDS: DOCUSATE 100 MG CAPSULE PO PRN (02:00)
[2018-04-05] MEDS: HYDROcodone-APAP 10 MG-325 MG TABLET PO PRN ×2 (02:48→08:44)
[2018-04-05] MEDS: PANTOPRAZOLE 40 MG TABLET PO SCH (07:16)
[2018-04-05] MEDS: NYSTATIN 100000 UNIT/1 ML - 5 ML UD CUP PO SCH ×2 (08:44→21:06)
[2018-04-05] MEDS: RAMIPRIL 10 MG CAPSULE PO SCH ×2 (08:45→21:05)
[2018-04-05] MEDS: EZETIMIBE 10 MG TABLET PO SCH (08:45)
--- NOTE | 2018-04-05 09:38 | NEURO.PROG ---
Subjective Post Op Day: 3 Pain Management: PO Banks Catheter: No Flatus: Yes Diet: Regular Ambulating: Yes Additional Details: Mr. Hastings is awake and alert. He is complaining of generalized weakness. His grasp is equally weak and his dorsi and planter flexion and hip flexion are also equally weak. He believes it is because he has not gotten his Remicade for greater than 30 days, and this is what he feels like without it. He has ambulated this morning, doing somewhat better than yesterday V/S are stable and his incision is dry and intact. I spoke with Dr. Juárez regarding the need for continued rehab and followup with Dr. Ria Washington regarding his autoimmune disorder. Dr. Juárez recommended an [facility]ys Hernandez consult. The patient and his agreed this would work for him. Initial contact has been made with Gladys Hernandez. Objective : Data - Labs CBC and BMP: 04/05/18 09:43 04/05/18 09:43 - Vital Signs Vital Signs and I&O: Vital Signs - Last Taken Temperature 97.9 F 04/05/18 07:20 Pulse Rate 89 04/05/18 07:20 Respiratory Rate 20 04/05/18 07:20 Blood Pressure 149/89 04/05/18 07:20 Pulse Ox 93 04/05/18 07:20 Intake and Output (24hr x 4 totals) 04/03/18 04/04/18 04/05/18 04/06/18 05:59 05:59 05:59 05:59 Intake Total 6550 / 6550 1590 / 1590 990 / 990 Output Total 1830 / 1830 1030 / 1030 580 / 580 Balance 4720 / 4720 560 / 560 410 / 410
[2018-04-05 09:48] LABS: Hematocrit [HCT] 41.9 % (42.0-52.0); Hemoglobin [HGB] 14.4 g/dL (14.0-18.0); MEAN CORPUSCULAR HEMOGLOBIN 30.3 PG (27-31); MEAN CORPUSCULAR HGB CONC 34.4 g/dL (33-37); MEAN PLATELET VOLUME 10.3 FL (7.4-12.2); RED BLOOD COUNT 4.76 10^6/uL (4.70-6.10)
[2018-04-05 09:58] LABS: BLOOD UREA NITROGEN 22 mg/dL (7-22); BUN/CREATININE RATIO 31.42 (6-20); SERUM ALBUMIN 3.6 g/dL (3.5-4.8)
--- NOTE | 2018-04-05 10:10 | PDOC(PROG) ---
Interval History: Patient denies chest pain nausea or vomiting he states that multiple joints hurt knees and wrists shoulders he was treated with Remicade every month by Dr. Guidry he has not gotten his Remicade infusion because of his back fusion. Apparently he has some generalized weakness and not progressing as expected by neurosurgery L Gustavo consult was put in by María Crane and possible follow-up with Dr. Guidry in [place] for Remicade infusion. Objective : Data - Labs CBC and BMP: 04/05/18 09:43 04/05/18 09:43 Objective : Exam - General General Appearance: Cooperative - Respiratory Respiratory Exam: Clear to Auscultation - Bilaterally, Breathing Non Labored, Normal To Percussion, Normal to Percussion and Palpation - Cardiovascular Cardiovascular Exam: RRR, No Murmur, No Clicks, No Gallops, No Rubs, PMI Non- Displaced - GI/Abdominal GI/Abdominal Exam: Normal Bowel Sounds, Non Tender, Non Distended, Soft, No Masses, No Hepatomegaly, No Splenomegaly, No Organomegaly - Extremities Extremities Exam: No Clubbing Present, No Edema Present, No Cyanosis Present Additional Extremities Exam Details: There is no joint swelling or elicited pain his machine milker is an not strong may be 3 out of 5 in both hands he says because his wrists hurt - Neurological Neurological Exam: Alert, No Facial Droop, Speech Intact / Clear, Moves All Extremities Equally Assessment and Plan - Patient Problems (1) History of diabetes mellitus, type II Current Visit: Yes Status: Acute Comment: Stable at present time Code(s): Z86.39 - Personal history of other endocrine, nutritional and metabolic disease (2) History of hypertension Current Visit: Yes Status: Acute Comment: Stable at present time Code(s): Z86.79 - Personal history of other diseases of the circulatory system (3) Hypercholesterolemia Current Visit: Yes Status: Acute Comment: Stable present Code(s): E78.00 - Pure hypercholesterolemia, unspecified (4) Back pain Current Visit: Yes Status: Acute Comment: Status post back fusion deferred to neurosurgical team for when to restart Remicade they did put in a consult for alcohol or for the patient to continue his rehabilitation in [place]. For now continue PTOT Code(s): M54.9 - Dorsalgia, unspecified (5) Leukocytosis Current Visit: Yes Status: Acute Comment: Most likely postop we'll check labs today Code(s): D72.829 - Elevated white blood cell count, unspecified
[2018-04-05] MEDS: POTASSIUM CHLORIDE 20 MEQ TAB PO SCH ×2 (11:02→21:06)
--- NOTE | 2018-04-05 11:18 | PT.PROG ---
Progress Note Progress Note: S: Pt reports that he is in a lot of pain today and did not initially get up with therapy - tried again 45 minutes later and pt was up with the staff upstairs and agreed to walk with therapy. O: Tx consisted of ambulation x 150 ft - pt first was using a standard walker and having difficulties with moving very far with multiple rest breaks - half way through, we tried a front wheeled walker which pt was safely able to use with CGA x 1 and demonstrated improved walking pattern and no need for rest breaks. Once back in the room, pt transferred to his recliner and was left with the chair alarm set and call light within reach. A: Pt did much better with walking with a FWW and this would be more appropriate for pt. Discussed getting up a few times this afternoon with staff to ambulate and that we will be trying stairs tomorrow. P: Continue per POC.
[2018-04-05] MEDS: HYDROcodone-APAP 5 MG -325 MG TABLET PO PRN ×2 (14:02→19:40)
[2018-04-05] MEDS: INSULIN GLARGINE SUBCUT SCH (19:35)
[2018-04-05] MEDS: [UNRECOGNIZED DRUG - OTHER] SUBCUT SCH (19:35)
[2018-04-05] MEDS: NICOTINE 21 MG /DAY PATCH TRANSDERM SCH (19:35)
[2018-04-05] MEDS: Patch Removal PATCH TRANSDERM SCH (20:17)
[2018-04-05] MEDS: Simvastatin Tab 80 MG TAB PO SCH (21:05)
[2018-04-06] MEDS: HYDROcodone-APAP 5 MG -325 MG TABLET PO PRN ×6 (00:18→23:27)
[2018-04-06 05:14] LABS: Hematocrit [HCT] 40.5 % (42.0-52.0); Hemoglobin [HGB] 13.6 g/dL (14.0-18.0); MEAN CORPUSCULAR HGB CONC 33.6 g/dL (33-37); MEAN CORPUSCULAR VOLUME 89.4 FL (80-90); MEAN PLATELET VOLUME 11.1 FL (7.4-12.2); RED BLOOD COUNT 4.53 10^6/uL (4.70-6.10)
[2018-04-06 05:35] LABS: BLOOD UREA NITROGEN 24 mg/dL (7-22); SERUM ALBUMIN 2.9 g/dL (3.5-4.8)
--- NOTE | 2018-04-06 06:50 | NEURO.PROG ---
Subjective Post Op Day: 4 Pain Management: PO Banks Catheter: No Diet: Regular Ambulating: Yes Additional Details: Mr. Hastings is awake, alert and feeling much better this morning. His bilateral hand grasp is strong. His dorsi and plantar flexion are also strong and equal bilaterally. He states he walked well with the front wheeled walker and feels like he would just benefit from a couple more days of therapy here and then discharge home. His incision is dry and intact. He moved his bowels yesterday. His pain is managed with hydrocodone 5/325 and he says that even though it wears off he doesn't feel as wiped out. The evaluation from [facility] has been started, pending an Occupational Therapy consult, but if he continues to make good progress he may be ready to discharge home early in the week. Objective : Data - Labs CBC and BMP: 04/06/18 04:13 04/06/18 04:13 - Vital Signs Vital Signs and I&O: Vital Signs - Last Taken Temperature 97.3 F 04/06/18 03:49 Pulse Rate 62 04/06/18 03:49 Respiratory Rate 20 04/06/18 03:49 Blood Pressure 126/82 04/06/18 03:49 Pulse Ox 94 04/06/18 03:49 Intake and Output (24hr x 4 totals) 04/04/18 04/05/18 04/06/18 04/07/18 05:59 05:59 05:59 05:59 Intake Total 1590 / 1590 990 / 990 680 / 680 Output Total 1030 / 1030 580 / 580 Balance 560 / 560 410 / 410 680 / 680
[2018-04-06] MEDS: PANTOPRAZOLE 40 MG TABLET PO SCH (06:55)
[2018-04-06] MEDS: POTASSIUM CHLORIDE 20 MEQ TAB PO SCH ×2 (08:34→19:59)
[2018-04-06] MEDS: NYSTATIN 100000 UNIT/1 ML - 5 ML UD CUP PO SCH ×2 (08:34→19:59)
[2018-04-06] MEDS: RAMIPRIL 10 MG CAPSULE PO SCH ×2 (08:34→19:59)
[2018-04-06] MEDS: EZETIMIBE 10 MG TABLET PO SCH (08:36)
--- NOTE | 2018-04-06 10:03 | PDOC(PROG) ---
Interval History: Patient is doing much better today is an grasp is very strong he does not want to go to [place] and will be discharged on Saturday when comes back here to pick him up I believe he will improve in the next 2 or 3 days with PT and OT denies chest pain nausea or vomiting Objective : Data - Labs CBC and BMP: 04/06/18 04:13 04/06/18 04:13 Objective : Exam - General General Appearance: No Acute Distress, Cooperative - Respiratory Respiratory Exam: Clear to Auscultation - Bilaterally, Breathing Non Labored, Normal To Percussion, Normal to Percussion and Palpation - Cardiovascular Cardiovascular Exam: RRR, No Murmur, No Clicks, No Gallops, No Rubs, PMI Non- Displaced - GI/Abdominal GI/Abdominal Exam: Normal Bowel Sounds, Non Tender, Non Distended, Soft, No Masses, No Hepatomegaly, No Splenomegaly, No Organomegaly - Extremities Extremities Exam: No Clubbing Present, No Edema Present, No Cyanosis Present Assessment and Plan - Patient Problems (1) History of diabetes mellitus, type II Current Visit: No Status: Acute Comment: Stable continue current medication Code(s): Z86.39 - Personal history of other endocrine, nutritional and metabolic disease (2) History of hypertension Current Visit: No Status: Acute Comment: Stable continue current medications Code(s): Z86.79 - Personal history of other diseases of the circulatory system (3) Hypercholesterolemia Current Visit: No Status: Acute Comment: Continue current medication Code(s): E78.00 - Pure hypercholesterolemia, unspecified (4) Back pain Current Visit: No Status: Acute Comment: Postop day #3 the further neurosurgical team for PTOT and pain control and discharge recommendations and orders Code(s): M54.9 - Dorsalgia, unspecified (5) Leukocytosis Current Visit: No Status: Acute Comment: Improving most likely reactive Code(s): D72.829 - Elevated white blood cell count, unspecified
--- NOTE | 2018-04-06 11:26 | PT.PROG ---
Progress Note Progress Note: S: Pt states that he feels weak today. Reports he doesn't feel like he can do much. O: Tx consisted of: working with pt to get him to don his brace independently - required cuing but after a couple of minutes was able to complete task. STS transfer with CGA x 1 for safety. Poor initial standing balance and first few steps with FWW but after pt started going, his gait pattern improved and he was able to complete 150 ft with FWW and CGA x 1 for safety. Once back in his room, pt required assistance to doff brace. Pt transferred into his chair and was able to change his gown with min A x 1. Call light was placed within reach and chair alarm was set. A: Pt does not appear very motivated to perform functional tasks such as dressing and putting his brace on and off himself - we set up a 9 AM time tomorrow for OT to come up and go over dressing equipment and then for PT to work on stairs. P: Continue per POC.
[2018-04-06] MEDS: ceFAZolin Inj 1 GM in Sodium Chloride 0.9% 100 ML IV SCH ×2 (11:34→19:12)
[2018-04-06] MEDS ORDERED: Sodium Chloride 0.9% 100 ML IV ONE (19:03)
[2018-04-06] MEDS: NICOTINE 21 MG /DAY PATCH TRANSDERM SCH (19:12)
[2018-04-06] MEDS: Patch Removal PATCH TRANSDERM SCH (19:13)
[2018-04-06] MEDS: [UNRECOGNIZED DRUG - OTHER] SUBCUT SCH (19:24)
[2018-04-06] MEDS: INSULIN GLARGINE SUBCUT SCH (19:24)
[2018-04-06] MEDS: Simvastatin Tab 80 MG TAB PO SCH (19:59)
[2018-04-07] MEDS ORDERED: Sodium Chloride 0.9% 100 ML IV ONE (03:24)
[2018-04-07] MEDS: ceFAZolin Inj 1 GM in Sodium Chloride 0.9% 100 ML IV SCH ×3 (03:36→19:27)
[2018-04-07] MEDS: HYDROcodone-APAP 5 MG -325 MG TABLET PO PRN ×4 (03:36→23:58)
[2018-04-07 05:29] LABS: Hemoglobin [HGB] 13.4 g/dL (14.0-18.0); MEAN CORPUSCULAR HGB CONC 33.5 g/dL (33-37); MEAN CORPUSCULAR VOLUME 89.7 FL (80-90); MEAN PLATELET VOLUME 10.4 FL (7.4-12.2); RED BLOOD COUNT 4.46 10^6/uL (4.70-6.10)
[2018-04-07 06:05] LABS: BLOOD UREA NITROGEN 20 mg/dL (7-22); BUN/CREATININE RATIO 28.57 (6-20); SERUM ALBUMIN 2.8 g/dL (3.5-4.8)
[2018-04-07 06:24] LABS: BAND NEUTROPHILS % 2 % (0-10); BASOPHILS % (MANUAL) 0 % (0-1); EOSINOPHILS % (MANUAL) 0 % (0-8); MONOCYTES % (MANUAL) 11 % (0-12); NEUTROPHILS % (MANUAL) 71 % (50-80); PLATELET MORPHOLOGY COMMENT SEE COMMENTS (NORM); RBC MORPHOLOGY COMMENT NORMAL MORPHOLOGY (NORM); WBC MORPHOLOGY COMMENT NORMAL MORPHOLOGY (NORM)
[2018-04-07] MEDS: PANTOPRAZOLE 40 MG TABLET PO SCH (07:04)
[2018-04-07] MEDS: POTASSIUM CHLORIDE 20 MEQ TAB PO SCH ×2 (08:33→20:04)
[2018-04-07] MEDS: RAMIPRIL 10 MG CAPSULE PO SCH ×2 (08:33→20:04)
[2018-04-07] MEDS: NYSTATIN 100000 UNIT/1 ML - 5 ML UD CUP PO SCH ×2 (08:35→20:04)
[2018-04-07] MEDS: EZETIMIBE 10 MG TABLET PO SCH (08:36)
--- NOTE | 2018-04-07 09:39 | OTI REPORT ---
Thank you for the referral of Stephen Hastings. He was seen on 04/04/18 for an occupational therapy inpatient evaluation status post lumbar fusion. SUBJECTIVE: The patient is a 67-year-old male from [place], [place]. He currently reports a pain level of 9/10 on the verbal analog scale (0=no pain, 10=worst pain); however, he agrees to participate in an OT evaluation and would like a shower. The patient reports that his home set up includes one step to the entrance of his home and then his house is all on the same level. He does have a tub/shower combo without a shower chair available. At prior level of function the patient was independent. He is retired. The patient does report that he feels weak today. PAST MEDICAL HISTORY: Past medical history can be found in the patient's medical record. OBJECTIVE FINDINGS: Bed mobility: The patient demonstrated the ability to complete a log roll technique in and out of bed. When he was log rolling back into bed the patient required mod assist with his lower extremities. Ambulation: The patient demonstrated the ability to ambulate short distances with physical therapy with a standard walker and a very slow, steady gait. Transfers: The patient completed functional transfers from wheelchair with min assist to stand. Activities of daily living: The patient required min assist to don and doff back brace. The patient completed a seated showering task with maximum assistance to wash and dry his lower extremities and contact guard assist for safety. He required min assist for the shower chair transfer. He was dependent with donning bilateral LEIDA hose and socks due to the patient not wanting to use the mill and coal transport operator at this time. Nursing assisted the patient with changing his dressing following the shower and removing his drain. Per the patient's request, he was educated in and issued a long handled bath sponge, a mill and coal transport operator, a shoe horn, and a sock aide. The patient did refuse to complete lower extremity dressing tasks with the adaptive equipment at this time due to his pain level. He is hoping to perform dressing tomorrow morning. ASSESSMENT: The patient may benefit from skilled occupational therapy to increase independence and safety with functional mobility tasks, donning and doffing of his back brace, and upper and lower extremity dressing. Short-Term Goals: To be met by discharge from inpatient: Patient will demonstrate the ability to complete lower and upper extremity dressing tasks with modified independence with use of adaptive equipment as needed. Patient will demonstrate the ability to complete log rolling techniques independently 100% of the time. Patient will increase activity tolerance and standing balance to stand x8-10 minutes in order to complete standing grooming tasks at sink. Patient will be able to complete all functional transfers to include chair/bed/toilet with stand by assistance only with the walker as needed. Long-Term Goals: To be met following discharge from inpatient: Patient will return home per prior level of function. Patient may be seen by outpatient physical therapy. TREATMENT PLAN: Patient will be seen B.I.D during the week and one time per day over the weekend as an inpatient to address the above goals and objectives. INITIAL TREATMENT: Treatment today consisted of the initial evaluation followed by functional activities to include transfers, seated showering task, and bed mobility tasks. LITTLE
[2018-04-07] MEDS ORDERED: Acetaminophen 1000mg Inj 1,000 MG/100 ML VIAL IV ONE (10:22)
--- NOTE | 2018-04-07 10:38 | NEURO.PROG ---
Subjective Post Op Day: 5 Pain Management: PO Banks Catheter: No Diet: Regular Ambulating: Yes Additional Details: Mr. Hastings is awake, complaining of "generalized pain and weakness from his autoimmune condition". He is anxious to be able to get his Remicade which he gets monthly and is overdue. I visited with him about the wound drainage and flank erythema he had yesterday and that we would need to wait, which he seemed to understand. He says that ice packs are helping and I told him we will try a dose of IV tylenol. He does not want to go to [place] and at this point that is not a consideration. His incision has minimal serous drainage and erythema and the flank erythema is reportedly decreased from yesterday. He is afebrile and his WBC is 10.69. His blood cultures are pending. Plan is to watch his incision, flank erythema and lab work, continue antibiotics and to mobilize as much as he can tolerate with his generalized symptoms. Objective : Data - Labs CBC and BMP: 04/07/18 05:25 04/07/18 05:25 - Vital Signs Vital Signs and I&O: Vital Signs - Last Taken Temperature 98.6 F 04/07/18 06:59 Pulse Rate 56 L 04/07/18 07:00 Respiratory Rate 18 04/07/18 07:00 Blood Pressure 142/81 04/07/18 06:59 Pulse Ox 97 04/07/18 06:59 Intake and Output (24hr x 4 totals) 04/05/18 04/06/18 04/07/18 04/08/18 05:59 05:59 05:59 05:59 Intake Total 990 / 990 680 / 680 1206 / 1206 320 / 320 Output Total 580 / 580 Balance 410 / 410 680 / 680 1206 / 1206 320 / 320
--- NOTE | 2018-04-07 14:23 | PT.PROG ---
Progress Note Progress Note: S. Patient stated that he was not feeling well this morning, however is feeling much better after the IV Tylenol. O. Patient ambulated 80 feet to the stair well then ascended and descended 3 stairs then ambulated 130 feet around the nurses station and back to his room where he performed log roll to get back into bed and was left with alarm and call light. A. Patient tolerated ambulation and stair training well, he was able to perform both with stand by guard assist. Patient would continue to benefit from skilled therapy to increase strength, endurance and safety at this time. P. Continue POC.
[2018-04-07] MEDS: HYDROcodone-APAP 7.5 MG-325 MG TABLET PO PRN (15:33)
--- NOTE | 2018-04-07 16:55 | OT.PROG ---
Progress Note Progress Note: S: pt stated that he was not going to get dressed this morning because he is in pain. O: tx consisted of STS x1, doffing and donning of back brace with MOD A, functional ambulation x5' with walker and CGA for safety, pt completed transfer to EOB. pt completed log roll to left side and completed bed mobility from EOB to supine with MOD A due to pain. A: pts pain tolerance was low due to pain. new pain medication is being looked at to help with pain management. P: continue POC
--- NOTE | 2018-04-07 17:14 | PT.PROG ---
Progress Note Progress Note: S. Patient stated that he is still feeling better than this morning, however states he feels that the Tylenol is wearing off. O. Patient ambulated 150 feet around the nurses station and back to his room where he performed log roll to get back into bed. Patient was left with alarm and call light. A. Patient tolerated ambulation well, he required contact guard assist with ambulation and min assist with bed mobility. Patient would continue to benefit from skilled therapy to increase strength, endurance and safety at this time. P. continue POC.
--- NOTE | 2018-04-07 17:18 | PDOC(PROG) ---
Date of Service: 04/07/18 Time of Service: 17:11 Interval History: No completes of chest pain, shortness breath, nausea or vomiting. Patient was seen earlier today. Has what appears to be a flank cellulitis bilaterally. Tender on the flanks. Incision has some redness around it, but no fluctuance Objective : Data - Labs CBC and BMP: 04/07/18 05:25 04/07/18 05:25 Objective : Exam - General General Appearance: No Acute Distress, Cooperative Additional General Exam Details: Vital Signs - Last Taken Temperature 98.7 F 04/07/18 15:38 Pulse Rate 77 04/07/18 15:38 Respiratory Rate 17 04/07/18 15:38 Blood Pressure 141/84 04/07/18 15:38 Pulse Ox 95 04/07/18 15:38 - Eye Eye Exam: No Scleral Icterus - ENT ENT Exam: Mucous Membranes Moist - Neck Neck Exam: JVP is not Raised - Respiratory Respiratory Exam: Clear to Auscultation - Bilaterally, Breathing Non Labored - Cardiovascular Cardiovascular Exam: RRR, No Murmur, No Clicks, No Gallops, No Rubs, No JVD - GI/Abdominal GI/Abdominal Exam: Normal Bowel Sounds, Non Tender, Non Distended, Soft - Extremities Extremities Exam: No Clubbing Present, No Edema Present, No Cyanosis Present - Back Back Exam: No CVA Tenderness Additional Back Exam Details: Has bilateral erythema and slight tenderness to palpation, consistent with cellulitis in the flanks. Incision looks dry, very minimal yellowish discharge on dressing. Robina are intact. No evidence of wound dehiscence. No fluctuance to suggest abscess. - Neurological Neurological Exam: Alert, Oriented x 3, No Facial Droop, Speech Intact / Clear, Moves All Extremities Equally Assessment and Plan - Patient Problems (1) Seronegative arthritis Current Visit: Yes Status: Acute Code(s): M13.80 - Other specified arthritis, unspecified site (2) Hypercholesterolemia Current Visit: No Status: Acute Code(s): E78.00 - Pure hypercholesterolemia, unspecified (3) Back pain Current Visit: No Status: Acute Code(s): M54.9 - Dorsalgia, unspecified Qualifiers: Back pain location: low back pain Chronicity: chronic Sciatica presence: unspecified whether sciatica present (4) Leukocytosis Current Visit: Yes Status: Acute Code(s): D72.829 - Elevated white blood cell count, unspecified Qualifiers: Leukocytosis type: unspecified Qualified Code(s): D72.829 - Elevated white blood cell count, unspecified (5) Diabetes mellitus type II, controlled Current Visit: Yes Status: Acute Code(s): E11.9 - Type 2 diabetes mellitus without complications Qualifiers: Diabetes mellitus half-way insulin use: unspecified student life coordinator insulin use status Diabetes mellitus complication status: without complication Qualified Code(s): E11.9 - Type 2 diabetes mellitus without complications (6) Hypertension Current Visit: Yes Status: Acute Code(s): I10 - Essential (primary) hypertension Qualifiers: Hypertension type: essential hypertension Qualified Code(s): I10 - Essential (primary) hypertension - Assessment / Plan Additional Assessment/Plan Details: Overall, the patient states that he feels like he is in pain and attributes that to being due for Remicade for his seronegative arthritis. He gave a distinct history of having significant pain in his joints, peripherally, which has i mproved significantly with Remicade infusions. He's been doing this for some time now. He was actually due sometime around March 30. His inflammatory changes looked consistent to me with the abdominal wall and flank wall cellulitis bilaterally. There could be some involvement of the incision but that's because some redness tracks bilaterally to the incision but no active drainage at the time of my exam. There is some yellowish discharge on the bandage. Very minimal in amount. Reassuring that white blood cell count has dropped significantly. I spoke with neurosurgery regarding this. The plan is to consider 10 days of Keflex coverage for cellulitis, and I think that would be reasonable, with follow-up with his primary physician and possibly infectious disease should any symptoms worsen. I did ask about doing MRI scan and consideration of a possible soft tissue abscess, but it was felt that it was far too early and the clinical presentation post surgery for this to be an abscess. Patient is not overly ill in terms of his back pain and states it is mostly surgical postoperative pain that he is having any attributes most of his pain to his seronegative arthritis in his joints. He states that shooting pain that he had from his back is completely resolved. Clinically, I think it makes the most sense to treat for cellulitis, monitor and postoperative clinic follow-ups in [place] as well as with his primary physician, consider ID referral if necessary, and that seems reasonable. I will order another CBC with differential for tomorrow as well as a basic metabolic panel. I do not think the patient should be cleared for Remicade until the cellulitis has resolved, unfortunately, as there is certainly some post surgical data that suggests that treatment of seronegative arthritis and rheumatoid arthritis does not necessarily inhibit wound healing. However I am worried that it could make the cellulitis significantly worse.
[2018-04-07] MEDS: NICOTINE 21 MG /DAY PATCH TRANSDERM SCH (19:27)
[2018-04-07] MEDS: [UNRECOGNIZED DRUG - OTHER] SUBCUT SCH (19:32)
[2018-04-07] MEDS: INSULIN GLARGINE SUBCUT SCH (19:32)
[2018-04-07] MEDS: Patch Removal PATCH TRANSDERM SCH (19:32)
[2018-04-07] MEDS ORDERED: Insulin Glargine SoloStar Inj 100 UNIT/ML INSULN.PEN SUBCUT ONE (20:00)
[2018-04-07] MEDS: Simvastatin Tab 80 MG TAB PO SCH (20:04)
[2018-04-08] MEDS: ceFAZolin Inj 1 GM in Sodium Chloride 0.9% 100 ML IV SCH (03:33)
[2018-04-08 05:58] LABS: Hematocrit [HCT] 42.5 % (42.0-52.0); Hemoglobin [HGB] 14.1 g/dL (14.0-18.0); MEAN CORPUSCULAR HEMOGLOBIN 29.7 PG (27-31); MEAN CORPUSCULAR HGB CONC 33.2 g/dL (33-37); MEAN CORPUSCULAR VOLUME 89.7 FL (80-90); MEAN PLATELET VOLUME 10.9 FL (7.4-12.2); RED BLOOD COUNT 4.74 10^6/uL (4.70-6.10)
[2018-04-08 06:17] LABS: BLOOD UREA NITROGEN 18 mg/dL (7-22); BUN/CREATININE RATIO 25.71 (6-20)
--- NOTE | 2018-04-08 06:17 | NEURO.PROG ---
Subjective Post Op Day: 6 Pain Management: PO Diet: Regular Ambulating: Yes Additional Details: Afebrile, V/S stable, Blood cultures - no growth in 24 hrs Has ambulated with nurses and physical therapy and feels ready to go home. Generalized weakness persists, pre-op leg pain has resolved and his dorsi and plantar flexion are strong bilaterally. Redness persists on bilateral flanks with minimal wound drainage. Objective : Data - Labs CBC and BMP: 04/08/18 05:10 04/08/18 05:10 - Vital Signs Vital Signs and I&O: Vital Signs - Last Taken Temperature 97.4 F 04/08/18 03:34 Pulse Rate 67 04/08/18 03:34 Respiratory Rate 17 04/08/18 03:34 Blood Pressure 131/76 04/08/18 03:34 Pulse Ox 97 04/08/18 03:34 Intake and Output (24hr x 4 totals) 04/06/18 04/07/18 04/08/18 04/09/18 05:59 05:59 05:59 05:59 Intake Total 680 / 680 1206 / 1206 1453 / 1453 Balance 680 / 680 1206 / 1206 1453 / 1453
[2018-04-08 06:29] LABS: BAND NEUTROPHILS % 3 % (0-10); BASOPHILS % (MANUAL) 0 % (0-1); EOSINOPHILS % (MANUAL) 2 % (0-8); MONOCYTES % (MANUAL) 3 % (0-12); NEUTROPHILS % (MANUAL) 80 % (50-80); PLATELET MORPHOLOGY COMMENT NORMAL MORPHOLOGY (NORM); RBC MORPHOLOGY COMMENT NORMAL MORPHOLOGY (NORM); WBC MORPHOLOGY COMMENT NORMAL MORPHOLOGY (NORM)
--- NOTE | 2018-04-08 06:41 | NEURO.PROG ---
Subjective Post Op Day: 6 Pain Management: PO Banks Catheter: Yes Flatus: No Diet: Regular Additional Details: Awake and alert. No complaint; feels good. Moving all extremities well. Erythema of flanks bilaterally, more erythematous then yesterday, despite Vancomycin and Ancef IV for two days, concerning for cellulitis. Oddly does not involve incision. Incision clean, dry, and intact with minimal drainage. PLAN: Continue IV antibiotics and continue to monitor possible bilateral flank cellulitis. Continue to mobilize. Objective : Data - Labs CBC and BMP: 04/08/18 05:10 04/08/18 05:10 - Vital Signs Vital Signs and I&O: Vital Signs - Last Taken Temperature 97.4 F 04/08/18 03:34 Pulse Rate 67 04/08/18 03:34 Respiratory Rate 17 04/08/18 03:34 Blood Pressure 131/76 04/08/18 03:34 Pulse Ox 97 04/08/18 03:34 Intake and Output (24hr x 4 totals) 04/06/18 04/07/18 04/08/18 04/09/18 05:59 05:59 05:59 05:59 Intake Total 680 / 680 1206 / 1206 1453 / 1453 Balance 680 / 680 1206 / 1206 1453 / 1453
[2018-04-08] MEDS: PANTOPRAZOLE 40 MG TABLET PO SCH (06:44)
[2018-04-08] MEDS: HYDROcodone-APAP 7.5 MG-325 MG TABLET PO PRN ×4 (06:45→20:20)
[2018-04-08] MEDS ORDERED: Acetaminophen 1000mg Inj 1,000 MG/100 ML VIAL IV PRN (07:42)
[2018-04-08] MEDS: RAMIPRIL 10 MG CAPSULE PO SCH ×2 (08:00→20:04)
[2018-04-08] MEDS: POTASSIUM CHLORIDE 20 MEQ TAB PO SCH ×2 (08:00→20:04)
[2018-04-08] MEDS: NYSTATIN 100000 UNIT/1 ML - 5 ML UD CUP PO SCH ×2 (08:01→20:03)
[2018-04-08] MEDS: EZETIMIBE 10 MG TABLET PO SCH (08:01)
--- NOTE | 2018-04-08 10:29 | OT.PROG ---
Progress Note Progress Note: S: pt stated that he was feeling better today and agreed to therapy services. O: tx consisted of bed mobility to right side independently, seated EOB UE doffing and donning of clothing independently,donning of brace independently, functional ambulation from EOB to bathroom with FWW and CGA for safety where pt completed functional transfer from standing to toilet independently. pt completed doffing of LE pants, toileting tasks, toileting hygiene and donning of LE pants independently. pt returned to bed for short rest break before being taken to therapy gym by PT. A: pt tolerated session well. pts motivation to complete therapy has improved with IV pain medications. pt is independent in most self cares. will practice donning and doffing LE completely. P: continue POC
--- NOTE | 2018-04-08 10:59 | PT.PROG ---
Progress Note Progress Note: S. Patient stated that he is feeling better this morning compared to yesterday. O. Patient ambulated 175 feet to the therapy gym where he used the arm bike and the nu-step both x 8 minutes, then ambulated 175 feet back to his room where he was left with alarm and call light. A. Patient tolerated ambulation and exercise well, he had no complaints of pain or problems. Patient would continue to benefit from endurnace exercises at this time. P. Continue POC.
[2018-04-08] MEDS: cefTRIAXone Inj 2 GM in Sodium Chloride 0.9% 100 ML IV SCH (11:12)
--- NOTE | 2018-04-08 11:39 | OT PM DAY ---
Diagnosis : Lumbar Fusion PM - Occupational Therapy S: The patient reports that his autoimmune disorder really limits his abilities to complete tasks in the morning. O: Today the patient was able to come from supine to sit with log rolling and increased time and needed min assist to come to sitting. While sitting edge of bed he was educated in the senior clinical study manager and the sock aide. He was able to doff his socks using the senior clinical study manager with increased time and verbal cues and was able to don his socks with min assist and verbal cues. He then transferred back into bed with min assist. A: The patient reports that due to his autoimmune disorder he is experiencing a lot of pain and symptoms. He would benefit from continued therapy. P: Continue seeing patient BID during the week and one time per day over the weekend for upper extremity strengthening, ADLs, and overall functional mobility. LITTLE
--- NOTE | 2018-04-08 12:36 | PDOC(PROG) ---
Date of Service: 04/08/18 Time of Service: 12:31 Interval History: Patient seen and evaluated earlier. He is very interested in doing a swing bed until his cellulitis has improved. No chest pain, shortness breath, nausea or vomiting. Back pain is controlled. He has diffuse peripheral joint pain from his seronegative arthritis. Objective : Data - Labs CBC and BMP: 04/08/18 05:10 04/08/18 05:10 Additional Lab Results: Selected Entries 04/07/18 11:00 04/07/18 15:28 04/07/18 19:20 Finger Stick Blood Glucose 156 H 158 H 235 H 04/08/18 07:00 04/08/18 11:00 Finger Stick Blood Glucose 122 H 179 H Objective : Exam - General General Appearance: No Acute Distress, Cooperative Additional General Exam Details: Vital Signs - Last Taken Temperature 97.2 F 04/08/18 11:29 Pulse Rate 63 04/08/18 11:29 Respiratory Rate 18 04/08/18 11:29 Blood Pressure 129/73 04/08/18 11:29 Pulse Ox 97 04/08/18 11:29 - Eye Eye Exam: No Scleral Icterus - ENT ENT Exam: Mucous Membranes Moist - Neck Neck Exam: JVP is not Raised - Respiratory Respiratory Exam: Clear to Auscultation - Bilaterally, Breathing Non Labored - Cardiovascular Cardiovascular Exam: RRR, No Murmur, No Clicks, No Gallops, No Rubs, No JVD - GI/Abdominal GI/Abdominal Exam: Normal Bowel Sounds, Non Tender, Non Distended, Soft - Extremities Extremities Exam: No Clubbing Present, No Edema Present, No Cyanosis Present - Neurological Neurological Exam: Alert, Oriented x 3, No Facial Droop, Speech Intact / Clear, Moves All Extremities Equally - Integumentary Integumentary Exam: Erythema Additional Integumentary Exam Details: Patient has bilateral flank cellulitis. I read through neurosurgery notes. They did not feel that the incision was involved. I think the redness and blotchiness of the cellulitis is about the same as it was yesterday. Less tender to palpation. No fluctuance to suggest abscess. Assessment and Plan - Patient Problems (1) Cellulitis of flank Current Visit: Yes Status: Acute Code(s): L03.312 - Cellulitis of back [any part except buttock] (2) Seronegative arthritis Current Visit: No Status: Acute Code(s): M13.80 - Other specified arthritis, unspecified site (3) Hypercholesterolemia Current Visit: No Status: Acute Code(s): E78.00 - Pure hypercholesterolemia, unspecified (4) Back pain Current Visit: No Status: Acute Code(s): M54.9 - Dorsalgia, unspecified Qualifiers: Back pain location: low back pain Chronicity: chronic Sciatica presence: unspecified whether sciatica present (5) Leukocytosis Current Visit: No Status: Acute Code(s): D72.829 - Elevated white blood cell count, unspecified Qualifiers: Leukocytosis type: unspecified Qualified Code(s): D72.829 - Elevated white blood cell count, unspecified (6) Diabetes mellitus type II, controlled Current Visit: No Status: Acute Code(s): E11.9 - Type 2 diabetes mellitus without complications Qualifiers: Diabetes mellitus university relations recruiter insulin use: unspecified university relations recruiter insulin use status Diabetes mellitus complication status: without complication Qualified Code(s): E11.9 - Type 2 diabetes mellitus without complications (7) Hypertension Current Visit: Yes Status: Acute Code(s): I10 - Essential (primary) hypertension Qualifiers: Hypertension type: essential hypertension Qualified Code(s): I10 - Essential (primary) hypertension (8) Status post lumbar surgery Current Visit: Yes Status: Acute Code(s): Z98.890 - Other specified postproc edural states - Assessment / Plan Additional Assessment/Plan Details: At this point, I think the patient's diabetes should continually be manage the same. He is on his home medications. With the exception of one blood sugar, his blood sugars have been at goal at less than 180 In terms of the cellulitis this is nonpurulent. I have not seen significant improvement on Ancef and vancomycin. I suspect this is more likely a Streptococcus agent. I will switch antibiotics from Ancef and vancomycin to Rocephin. Anticipate swing bed. PT and OT. Hopefully once the cellulitis has improved and we can switch to by mouth antibiotics to finish course, we can consider discharging the patient home. From a medical standpoint it's really the improvement in his cellulitis that I would like to see prior to discharge.
--- NOTE | 2018-04-08 16:30 | PT.PROG ---
Progress Note Progress Note: S. Patient stated that he is feeling better after getting a shower. O. Patient ambulated 175 feet to the therapy gym where he used the bicycle x 10 minutes then ambulated 300 feet back to his room where he performed log roll to get back into bed and was left with alarm and call light. A. Patient tolerated therapy well this afternoon, he is making gains with mobility and endurance. He would continue to benefit from skilled therapy to increase endurance at this time. P. Continue POC.
--- NOTE | 2018-04-08 17:24 | OT.PROG ---
Progress Note Progress Note: S: pt was in good spirits today and nothing new to report. O: pt was seen in his room and completed transfer to sink and completed activities at sink Ind, including brushing teeth and hands before transferring downstairs with CGA. He completed 10 min on UE bike to increase activity tolerance. He was returned to his room by PT. A: Pt may continue to benefit from therapy to increase activity tolerance and rely on a/E for ADL dressing. P: Continue per pOC.
[2018-04-08] MEDS: NICOTINE 21 MG /DAY PATCH TRANSDERM SCH (20:01)
[2018-04-08] MEDS: INSULIN GLARGINE SUBCUT SCH (20:02)
[2018-04-08] MEDS: [UNRECOGNIZED DRUG - OTHER] SUBCUT SCH (20:02)
[2018-04-08] MEDS: Patch Removal PATCH TRANSDERM SCH (20:03)
[2018-04-08] MEDS: Simvastatin Tab 80 MG TAB PO SCH (20:04)
[2018-04-09] MEDS: HYDROcodone-APAP 7.5 MG-325 MG TABLET PO PRN ×4 (03:40→18:01)
[2018-04-09 05:14] LABS: Hematocrit [HCT] 40.1 % (42.0-52.0); Hemoglobin [HGB] 13.8 g/dL (14.0-18.0); MEAN CORPUSCULAR HGB CONC 34.4 g/dL (33-37); MEAN CORPUSCULAR VOLUME 90.1 FL (80-90); MEAN PLATELET VOLUME 10.8 FL (7.4-12.2); RED BLOOD COUNT 4.45 10^6/uL (4.70-6.10)
[2018-04-09 06:07] LABS: WBC MORPHOLOGY COMMENT NORMAL MORPHOLOGY (NORM)
[2018-04-09 06:10] LABS: PLATELET MORPHOLOGY COMMENT SEE COMMENTS (NORM); RBC MORPHOLOGY COMMENT NORMAL MORPHOLOGY (NORM)
[2018-04-09 06:11] LABS: BAND NEUTROPHILS % 1 % (0-10); BASOPHILS % (MANUAL) 0 % (0-1); EOSINOPHILS % (MANUAL) 2 % (0-8); MONOCYTES % (MANUAL) 10 % (0-12); NEUTROPHILS % (MANUAL) 69 % (50-80)
[2018-04-09] MEDS: PANTOPRAZOLE 40 MG TABLET PO SCH (06:51)
[2018-04-09] MEDS: POTASSIUM CHLORIDE 20 MEQ TAB PO SCH ×2 (09:36→20:41)
[2018-04-09] MEDS: EZETIMIBE 10 MG TABLET PO SCH (09:37)
[2018-04-09] MEDS: RAMIPRIL 10 MG CAPSULE PO SCH ×2 (09:37→20:42)
[2018-04-09] MEDS: NYSTATIN 100000 UNIT/1 ML - 5 ML UD CUP PO SCH ×2 (09:38→20:41)
[2018-04-09] MEDS: cefTRIAXone Inj 2 GM in Sodium Chloride 0.9% 100 ML IV SCH (10:23)
--- NOTE | 2018-04-09 10:55 | OT.PROG ---
Progress Note Progress Note: S: pt stated that he had extreme leg cramps on R side last night. pt agreed to therapy. O: tx consisted of bed mobility from supine to EOB where pt donned UE shirt independently and back brace. pt completed functional ambulation with FWW and CGA for safety to toilet where pt completed toileting tasks and hygiene in dependently. pt completed standing ADL task of hand washing and oral hygiene. pt needed MIN A to adjust back brace. pt completed functional ambulation x 245' with FWW and SBA for safety. A: pt was unaware until he stood up that his back brace was not center on his body. pt is improving in overall ADL performance and functional ability. P: continue POC
--- NOTE | 2018-04-09 11:16 | PT.PROG ---
Progress Note Progress Note: S. patient stated that he had a bad night last night, and had a cramp in his hip, however he stated that he would like to go to the therapy gym to try to work it out. O. Patient ambulated 175 feet to the therapy gym where he used the nu-step x 10 minutes then ambulated 175 feet back to his room where he performed log roll to get back into bed where he was left with alarm and call light. A. Patient tolerated therapy well, he was able to perform all exercise with no pain or problems. Patient would continue to benefit from skilled therapy to increase strength and endurance at this time. P. Continue Poc.
--- NOTE | 2018-04-09 13:41 | PDOC(PROG) ---
Date of Service: 04/09/18 Time of Service: 13:37 Interval History: Patient seen and evaluated earlier today. He states that his joints are hurting and attributes it to seronegative arthritis. Pain from back surgery is controlled. He denies any chest pain, shortness breath, nausea or vomiting. He is not interested in doing a therapy bed and is more interested in continuing IV antibiotics at home with outpatient follow-up. Objective : Data - Labs CBC and BMP: 04/09/18 04:10 04/08/18 05:10 Objective : Exam - General General Appearance: No Acute Distress, Cooperative Additional General Exam Details: Vital Signs - Last Taken Temperature 97.1 F 04/09/18 11:20 Pulse Rate 75 04/09/18 11:20 Respiratory Rate 24 04/09/18 11:20 Blood Pressure 138/75 04/09/18 11:20 Pulse Ox 95 04/09/18 11:20 - Eye Eye Exam: No Scleral Icterus - ENT ENT Exam: Mucous Membranes Moist - Neck Neck Exam: JVP is not Raised - Respiratory Respiratory Exam: Clear to Auscultation - Bilaterally, Breathing Non Labored - Cardiovascular Cardiovascular Exam: RRR, No Murmur, No Clicks, No Gallops, No Rubs, No JVD - GI/Abdominal GI/Abdominal Exam: Normal Bowel Sounds, Non Tender, Non Distended, Soft - Extremities Extremities Exam: No Clubbing Present, No Edema Present, No Cyanosis Present - Neurological Neurological Exam: Alert, Oriented x 3, Normal Gait, No Facial Droop, Speech Intact / Clear, Moves All Extremities Equally - Psychiatric Psychiatric Exam: Normal Affect, Normal Mood - Integumentary Additional Integumentary Exam Details: The flank erythema is probably about 20-30% better than it has been over the last 2 days. It definitely has receded a little more so on the right side than the left and is not tender to palpation. Assessment and Plan - Patient Problems (1) Cellulitis of flank Current Visit: Yes Status: Acute Code(s): L03.312 - Cellulitis of back [any part except buttock] (2) Seronegative arthritis Current Visit: No Status: Acute Code(s): M13.80 - Other specified arthritis, unspecified site (3) Hypercholesterolemia Current Visit: No Status: Acute Code(s): E78.00 - Pure hypercholesterolemia, unspecified (4) Back pain Current Visit: No Status: Acute Code(s): M54.9 - Dorsalgia, unspecified Qualifiers: Back pain location: low back pain Chronicity: chronic Sciatica presence: unspecified whether sciatica present (5) Leukocytosis Current Visit: No Status: Acute Code(s): D72.829 - Elevated white blood cell count, unspecified Qualifiers: Leukocytosis type: unspecified Qualified Code(s): D72.829 - Elevated white blood cell count, unspecified (6) Diabetes mellitus type II, controlled Current Visit: No Status: Acute Code(s): E11.9 - Type 2 diabetes mellitus without complications Qualifiers: Diabetes mellitus detention insulin use: unspecified detention insulin use status Diabetes mellitus complication status: without complication Qualified Code(s): E11.9 - Type 2 diabetes mellitus without complications (7) Hypertension Current Visit: Yes Status: Acute Code(s): I10 - Essential (primary) hypertension Qualifiers: Hypertension type: essential hypertension Qualified Code(s): I10 - Essential (primary) hypertension (8) Status post lumbar surgery Current Visit: Yes Status: Acute Code(s): Z98.890 - Other specified postprocedural states - Assessment / Plan Additional Assessment/Plan Details: Currently on Rocephin, day #2. I think the patient would benefit from a total of 10 days of IV antibiotics for this. I definitely feel that this is clinically improved today versus yesterday. We'll try to arrange IV outpatient antibiotics in [place] starting on Saturday. He would infuse here prior to discharge. I think he should hold off on Remicade until this flank cellulitis is better. Once the flank cellulitis has improved, resolved, then I think he should proceed with getting his Remicade then. This will hopefully help reverse this flare of seronegative arthritis. I will arrange for labs to go to his primary physician, Dr. Knowles, and also to Dr. Juárez while on IV antibiotics. Labs in a.m.
--- NOTE | 2018-04-09 15:32 | PT.PROG ---
Progress Note Progress Note: S. Patient stated that he is tired this afternoon, however agreed to go to the therapy gym. O. Patient ambulated 175 feet to the therapy gym where he used the nu-step x 10 minutes. Patient performed sit to stands x 10 then ambulated 300 feet back to his room where he was left in bed with alarm and call light. A. Patient tolerated exercise well. Patient has met all goals at this time, he would benefit from continued therapy for strength and endurance. P. Continue POC.
--- NOTE | 2018-04-09 16:51 | OT.PROG ---
Progress Note Progress Note: Occupational Therapy S: Pt. reports that he is doing well. he wants to get up and move. O: Pt. was seen at 1330 for skilled OT session. pt. demonstrated the ability to perform bed mobility tasks using a log rolling technique with SBA and performed a functional transfer with SBA with FWW. He then completed UE ROM activity in all planes and ranges in a pain free range. A: Pt. tolerated treatment session well and will be discharged tomorrow. P: Continue POC. RADHA Oneill/Collin
[2018-04-09] MEDS: NICOTINE 21 MG /DAY PATCH TRANSDERM SCH (20:40)
[2018-04-09] MEDS: INSULIN GLARGINE SUBCUT SCH (20:41)
[2018-04-09] MEDS: [UNRECOGNIZED DRUG - OTHER] SUBCUT SCH (20:41)
[2018-04-09] MEDS: Simvastatin Tab 80 MG TAB PO SCH (20:42)
[2018-04-09] MEDS: Patch Removal PATCH TRANSDERM SCH (20:42)
[2018-04-10] MEDS: HYDROcodone-APAP 7.5 MG-325 MG TABLET PO PRN (03:09)
[2018-04-10] MEDS: PANTOPRAZOLE 40 MG TABLET PO SCH (08:04)
[2018-04-10 09:58] LABS: BASOPHILS # (AUTO) 0.04 10*3/UL; BASOPHILS % (AUTO) 0.3 % (0-1); EOSINOPHILS # (AUTO) 0.16 10*3/UL; EOSINOPHILS % (AUTO) 1.3 % (0-8); Hematocrit [HCT] 42.7 % (42.0-52.0); Hemoglobin [HGB] 14.5 g/dL (14.0-18.0); LYMPHOCYTES # (AUTO) 2.09 10*3/uL; MEAN CORPUSCULAR HEMOGLOBIN 30.5 PG (27-31); MEAN CORPUSCULAR VOLUME 89.7 FL (80-90); MEAN PLATELET VOLUME 10.3 FL (7.4-12.2); MONOCYTES # (AUTO) 0.74 10*3/UL (0.3-0.8); MONOCYTES % (AUTO) 5.8 % (5-15); RED BLOOD COUNT 4.76 10^6/uL (4.70-6.10)
[2018-04-10 10:04] LABS: PLATELET MORPHOLOGY COMMENT NORMAL MORPHOLOGY (NORM); RBC MORPHOLOGY COMMENT NORMAL MORPHOLOGY (NORM); WBC MORPHOLOGY COMMENT NORMAL MORPHOLOGY (NORM)
[2018-04-10 10:14] LABS: BLOOD UREA NITROGEN 20 mg/dL (7-22); SERUM ALBUMIN 3.4 g/dL (3.5-4.8)
[2018-04-10] MEDS: EZETIMIBE 10 MG TABLET PO SCH (10:19)
[2018-04-10] MEDS: POTASSIUM CHLORIDE 20 MEQ TAB PO SCH ×2 (10:20→20:12)
[2018-04-10] MEDS: NYSTATIN 100000 UNIT/1 ML - 5 ML UD CUP PO SCH ×2 (10:20→20:12)
[2018-04-10] MEDS: RAMIPRIL 10 MG CAPSULE PO SCH ×2 (10:20→20:12)
[2018-04-10] MEDS: HYDROcodone-APAP 5 MG -325 MG TABLET PO PRN ×2 (10:28→17:45)
[2018-04-10 10:52] LABS: Erythrocyte Sediment Rate 48 MM/HR (0-15)
[2018-04-10] MEDS: cefTRIAXone Inj 2 GM in Sodium Chloride 0.9% 100 ML IV SCH (11:28)
--- NOTE | 2018-04-10 12:07 | NEURO.PROG ---
Subjective Post Op Day: 7 Pain Management: PO Banks Catheter: No Flatus: Yes Diet: Regular Ambulating: Yes Additional Details: Delayed Entry Patient seen yesterday evening, approximately 6:15 pm (could not access [facility] later from [facility] to write note). Awake and alert. Following commands. Moving all extremities well. Continued bilateral flank erythema, warm and blanching. PLAN: Continue observation and antibiotics. Objective : Data - Labs CBC and BMP: 04/10/18 09:53 04/10/18 09:53 - Vital Signs Vital Signs and I&O: Vital Signs - Last Taken Temperature 97.6 F 04/10/18 11:08 Pulse Rate 81 04/10/18 11:08 Respiratory Rate 20 04/10/18 11:08 Blood Pressure 117/63 04/10/18 11:08 Pulse Ox 98 04/10/18 11:08 Intake and Output (24hr x 4 totals) 04/08/18 04/09/18 04/10/18 04/11/18 05:59 05:59 05:59 05:59 Intake Total 1453 / 1453 1060 / 1060 1270 / 1270 355 / 355 Balance 1453 / 1453 1060 / 1060 1270 / 1270 355 / 355
--- NOTE | 2018-04-10 12:13 | NEURO.PROG ---
Subjective Post Op Day: 8 Pain Management: PO Banks Catheter: No Flatus: Yes Diet: Regular Ambulating: Yes Additional Details: Awake and alert. Still with some post surgical pain and leg pain. Moving all extremities well. Flank erythema unchanged, still warm but blotable. PLAN: 1.) Patient to be seen by [facility] today and to return after. 2.) Plan likely discharge tomorrow if presumed cellulitis remains stable with antibiotic per [facility]. Objective : Data - Labs CBC and BMP: 04/10/18 09:53 04/10/18 09:53 - Vital Signs Vital Signs and I&O: Vital Signs - Last Taken Temperature 97.6 F 04/10/18 11:08 Pulse Rate 81 04/10/18 11:08 Respiratory Rate 20 04/10/18 11:08 Blood Pressure 117/63 04/10/18 11:08 Pulse Ox 98 04/10/18 11:08 Intake and Output (24hr x 4 totals) 04/08/18 04/09/18 04/10/18 04/11/18 05:59 05:59 05:59 05:59 Intake Total 1453 / 1453 1060 / 1060 1270 / 1270 355 / 355 Balance 1453 / 1453 1060 / 1060 1270 / 1270 355 / 355
[2018-04-10] MEDS: Clindamycin 900mg (Premix) 900 MG/50 ML BAG IV SCH (19:03)
[2018-04-10] MEDS: INSULIN GLARGINE SUBCUT SCH (19:04)
[2018-04-10] MEDS: [UNRECOGNIZED DRUG - OTHER] SUBCUT SCH (19:04)
[2018-04-10] MEDS: NICOTINE 21 MG /DAY PATCH TRANSDERM SCH (19:04)
[2018-04-10] MEDS: Patch Removal PATCH TRANSDERM SCH (19:05)
[2018-04-10] MEDS: Simvastatin Tab 80 MG TAB PO SCH (20:12)
--- NOTE | 2018-04-10 22:05 | PDOC(PROG) ---
Date of Service: 04/10/18 Time of Service: 22:02 Interval History: Patient seen and evaluated earlier today 2. Also seen post infectious disease clinic. He complains of joint pains in his lower joints, hips, and is being sore from the right to [place] and back. No chest pains. No nausea or vomiting. No fevers and chills Objective : Data - Labs CBC and BMP: 04/10/18 09:53 04/10/18 09:53 Objective : Exam - General General Appearance: No Acute Distress, Cooperative Additional General Exam Details: Vital Signs - Last Taken Temperature 98.9 F 04/10/18 20:06 Pulse Rate 73 04/10/18 20:06 Respiratory Rate 20 04/10/18 20:06 Blood Pressure 124/67 04/10/18 20:06 Pulse Ox 96 04/10/18 20:06 - Eye Eye Exam: No Scleral Icterus - ENT ENT Exam: Mucous Membranes Moist - Neck Neck Exam: JVP is not Raised - Respiratory Respiratory Exam: Clear to Auscultation - Bilaterally, Breathing Non Labored - Cardiovascular Cardiovascular Exam: RRR, No Murmur, No Clicks, No Gallops, No Rubs, No JVD - GI/Abdominal GI/Abdominal Exam: Normal Bowel Sounds, Non Tender, Non Distended, Soft - Extremities Extremities Exam: No Clubbing Present, No Edema Present, No Cyanosis Present - Back Back Exam: No CVA Tenderness - Neurological Neurological Exam: Alert, Oriented x 3, No Facial Droop, Speech Intact / Clear, Moves All Extremities Equally Assessment and Plan - Patient Problems (1) Cellulitis of flank Current Visit: Yes Status: Acute Code(s): L03.312 - Cellulitis of back [any part except buttock] (2) Seronegative arthritis Current Visit: No Status: Acute Code(s): M13.80 - Other specified arthritis, unspecified site (3) Hypercholesterolemia Current Visit: No Status: Acute Code(s): E78.00 - Pure hypercholesterolemia, unspecified (4) Back pain Current Visit: No Status: Acute Code(s): M54.9 - Dorsalgia, unspecified Qualifiers: Back pain location: low back pain Chronicity: chronic Sciatica presence: unspecified whether sciatica present (5) Leukocytosis Current Visit: No Status: Acute Code(s): D72.829 - Elevated white blood cell count, unspecified Qualifiers: Leukocytosis type: unspecified Qualified Code(s): D72.829 - Elevated white blood cell count, unspecified (6) Diabetes mellitus type II, controlled Current Visit: No Status: Acute Code(s): E11.9 - Type 2 diabetes mellitus without complications Qualifiers: Diabetes mellitus assisted insulin use: unspecified ad terminal makeup operator insulin use status Diabetes mellitus complication status: without complication Qualified Code(s): E11.9 - Type 2 diabetes mellitus without complications (7) Hypertension Current Visit: Yes Status: Acute Code(s): I10 - Essential (primary) hypertension Qualifiers: Hypertension type: essential hypertension Qualified Code(s): I10 - Essential (primary) hypertension (8) Status post lumbar surgery Current Visit: Yes Status: Acute Code(s): Z98.890 - Other specified postprocedural states - Assessment / Plan Additional Assessment/Plan Details: I spoke with neurosurgery and also spoke with infectious disease. At this time infectious disease thinks this could be a group A strep cellulitis so we will actually treat with Rocephin and clindamycin IV for another 1-2 days in the hospital. As long as we're having good clinical response, would be 7-10 days of Rocephin IV and clindamycin by mouth. Patient has established follow-up with infectious disease in [facility]. We will try to arrange IV antibiotics via the home agency if possible in [place]. We will work with case management to make that happen. No Remicade until the cellulitis has resolved. Discussed with patient and he agrees with that plan. Labs in a.m. Start Diflucan as well
[2018-04-11] MEDS: Clindamycin 900mg (Premix) 900 MG/50 ML BAG IV SCH ×4 (00:43→19:20)
[2018-04-11] MEDS: HYDROcodone-APAP 7.5 MG-325 MG TABLET PO PRN ×5 (00:43→21:49)
[2018-04-11 05:52] LABS: BASOPHILS # (AUTO) 0.02 10*3/UL; BASOPHILS % (AUTO) 0.2 % (0-1); EOSINOPHILS # (AUTO) 0.16 10*3/UL; EOSINOPHILS % (AUTO) 1.5 % (0-8); Hematocrit [HCT] 41.7 % (42.0-52.0); Hemoglobin [HGB] 13.8 g/dL (14.0-18.0); LYMPHOCYTES # (AUTO) 2.42 10*3/uL; MEAN CORPUSCULAR HEMOGLOBIN 29.9 PG (27-31); MEAN CORPUSCULAR HGB CONC 33.1 g/dL (33-37); MEAN CORPUSCULAR VOLUME 90.5 FL (80-90); MEAN PLATELET VOLUME 10.1 FL (7.4-12.2); MONOCYTES # (AUTO) 0.94 10*3/UL (0.3-0.8); NEUTROPHILS # (AUTO) 6.53 10*3/UL; NEUTROPHILS % (AUTO) 62.2 % (50-80); RED BLOOD COUNT 4.61 10^6/uL (4.70-6.10)
[2018-04-11 06:14] LABS: BLOOD UREA NITROGEN 22 mg/dL (7-22); BUN/CREATININE RATIO 24.44 (6-20)
[2018-04-11] MEDS: PANTOPRAZOLE 40 MG TABLET PO SCH (06:53)
[2018-04-11 06:56] LABS: PLATELET MORPHOLOGY COMMENT NORMAL MORPHOLOGY (NORM); RBC MORPHOLOGY COMMENT NORMAL MORPHOLOGY (NORM); WBC MORPHOLOGY COMMENT NORMAL MORPHOLOGY (NORM)
--- NOTE | 2018-04-11 07:30 | NEURO.PROG ---
Subjective Post Op Day: 9 Pain Management: PO Banks Catheter: No Diet: Regular Ambulating: Yes Additional Details: This morning Mr. Hastings is awake and alert and in good spirits. His appointment with infectious disease in [place] yesterday tired him out, but he is feeling OK. He is aware of the continued antibiotic plan after discharge and follow up with infectious disease in [place]. His V/S are stable. He is afebrile. His flank erythema is present but decreased this morning. His incision is dry and intact. He has passed all physical therapy milestones. He was given post op instructions regarding incision care and activity and follow up in [place] with Dr. Juárez, infectious disease and Dr. Engel. From a neuro standpoint he is ready for discharge. Plan from hospitalist was to discharge tomorrow. Continue to mobilize. Objective : Data - Labs CBC and BMP: 04/11/18 05:40 04/11/18 05:40 - Vital Signs Vital Signs and I&O: Vital Signs - Last Taken Temperature 98.1 F 04/11/18 04:18 Pulse Rate 59 L 04/11/18 04:18 Respiratory Rate 16 04/11/18 04:18 Blood Pressure 107/66 04/11/18 04:18 Pulse Ox 96 04/11/18 04:18 Intake and Output (24hr x 4 totals) 04/09/18 04/10/18 04/11/18 04/12/18 05:59 05:59 05:59 05:59 Intake Total 1060 / 1060 1270 / 1270 1355 / 1355 Balance 1060 / 1060 1270 / 1270 1355 / 1355
[2018-04-11] MEDS: POTASSIUM CHLORIDE 20 MEQ TAB PO SCH ×2 (08:38→21:49)
[2018-04-11] MEDS: NYSTATIN 100000 UNIT/1 ML - 5 ML UD CUP PO SCH ×2 (08:38→21:48)
[2018-04-11] MEDS: RAMIPRIL 10 MG CAPSULE PO SCH ×2 (08:38→21:49)
[2018-04-11] MEDS: EZETIMIBE 10 MG TABLET PO SCH (08:38)
[2018-04-11] MEDS: cefTRIAXone Inj 2 GM in Sodium Chloride 0.9% 100 ML IV SCH (11:21)
--- NOTE | 2018-04-11 11:24 | PDOC(PROG) ---
Interval History: Patient is doing great has no complaints no chest pain nausea or vomiting. Objective : Data - Labs CBC and BMP: 04/11/18 05:40 04/11/18 05:40 Objective : Exam - General General Appearance: Cooperative - Respiratory Respiratory Exam: Clear to Auscultation - Bilaterally, Breathing Non Labored, Normal To Percussion, Normal to Percussion and Palpation - Cardiovascular Cardiovascular Exam: RRR, No Murmur, No Clicks, No Gallops, No Rubs, PMI Non- Displaced - GI/Abdominal GI/Abdominal Exam: Normal Bowel Sounds, Non Tender, Non Distended, Soft, No Masses, No Hepatomegaly, No Splenomegaly, No Organomegaly - Integumentary Additional Integumentary Exam Details: I have examined his cellulitis with Dr. Jarrett according to him there is great response on the left on the right-hand side of his cellulitis on the flank maybe 20% better on the left so good response from Rocephin and clindamycin Assessment and Plan - Patient Problems (1) Cellulitis of flank Current Visit: Yes Status: Acute Comment: Examined with Dr. Tomlin morning there is clinical response to Rocephin and [employer] social [employer] is arranging for outpatient IV antibiotics for 10 days. Discuss case with Dr. Jarrett and pending. Patient has no concerns or complaints and is doing well and in good spirits continue other usual home meds. I discussed the case with María Crane she stated that from their standpoint patient is okay to be discharged home Code(s): L03.312 - Cellulitis of back [any part except buttock] (2) Hypercholesterolemia Current Visit: No Status: Acute Comment: Stable Code(s): E78.00 - Pure hypercholesterolemia, unspecified (3) Back pain Current Visit: No Status: Acute Comment: Status post surgery Code(s): M54.9 - Dorsalgia, unspecified Qualifiers: Back pain location: low back pain Chronicity: chronic Sciatica presence: unspecified whether sciatica present (4) Diabetes mellitus type II, controlled Current Visit: No Status: Acute Comment: Stable Code(s): E11.9 - Type 2 diabetes mellitus without complications Qualifiers: Diabetes mellitus shelter insulin use: unspecified shelter insulin use status Diabetes mellitus complication status: without complication Qualified Code(s): E11.9 - Type 2 diabetes mellitus without complications (5) Hypertension Current Visit: Yes Status: Acute Comment: Stable Code(s): I10 - Essential (primary) hypertension Qualifiers: Hypertension type: essential hypertension Qualified Code(s): I10 - Essential (primary) hypertension (6) Seronegative arthritis Current Visit: No Status: Acute Comment: He follows Dr. Guidry he will arrange for his follow-up appointment Code(s): M13.80 - Other specified arthritis, unspecified site (7) Status post lumbar surgery Current Visit: Yes Status: Acute Comment: Deferred the neurosurgical team pain control follow-up instructions Code(s): Z98.890 - Other specified postprocedural states
--- NOTE | 2018-04-11 11:59 | PT.PROG ---
Progress Note Progress Note: S. Patient stated that he is feeling much better this morning. O. Patient ambulated 175 feet to the therapy gym where he used the nu-step x 12 minutes, then ambulated 500 feet around the nurses station and the hospital. Patient was left in bed with alarm and call light. A. Patient tolerated ambulation and exercise well, he had no complaints or problems at this time. P. Continue POC until discharge.
--- NOTE | 2018-04-11 16:28 | PT.PROG ---
Progress Note Progress Note: S. Patient stated that he would like to try walking on the treadmill this afternoon. O. patient ambulated 175 feet to the therapy gym where he used the treadmill x 5 minutes then ambulated 175 feet back to his room where he was left in bed with alarm and call light. A. Patient tolerated ambulation well. P. Patient has met all goals at this time.
[2018-04-11] MEDS: NICOTINE 21 MG /DAY PATCH TRANSDERM SCH (19:20)
[2018-04-11] MEDS: INSULIN GLARGINE SUBCUT SCH (19:21)
[2018-04-11] MEDS: [UNRECOGNIZED DRUG - OTHER] SUBCUT SCH (19:21)
[2018-04-11] MEDS: Patch Removal PATCH TRANSDERM SCH (19:29)
[2018-04-11] MEDS: Simvastatin Tab 80 MG TAB PO SCH (21:50)
[2018-04-12] MEDS: Clindamycin 900mg (Premix) 900 MG/50 ML BAG IV SCH ×4 (00:53→18:24)
[2018-04-12] MEDS: HYDROcodone-APAP 7.5 MG-325 MG TABLET PO PRN ×3 (01:19→18:58)
[2018-04-12] MEDS: PANTOPRAZOLE 40 MG TABLET PO SCH (07:04)
[2018-04-12] MEDS: HYDROcodone-APAP 5 MG -325 MG TABLET PO PRN (07:28)
--- NOTE | 2018-04-12 08:52 | NEURO.PROG ---
Subjective Post Op Day: 10 Pain Management: PO Ambulating: Yes Additional Details: Mr Hastings is awake and alert. He is afebrile and incision is dry without erythema. The redness persists over his bilateral flanks. He has been cleared by physical therapy for all of his milestone. He has been given post op instructions regarding his incision care and activity with his brace on. He will be seen by Dr. Juárez next week in the [facility]. Objective : Data - Labs CBC and BMP: 04/11/18 05:40 04/11/18 05:40 - Vital Signs Vital Signs and I&O: Vital Signs - Last Taken Temperature 97.9 F 04/12/18 07:33 Pulse Rate 53 L 04/12/18 07:33 Respiratory Rate 16 04/12/18 07:33 Blood Pressure 115/67 04/12/18 07:33 Pulse Ox 96 04/12/18 07:33 Intake and Output (24hr x 4 totals) 04/10/18 04/11/18 04/12/18 04/13/18 05:59 05:59 05:59 05:59 Intake Total 1270 / 1270 1355 / 1355 1585 / 1585 Balance 1270 / 1270 1355 / 1355 1585 / 1585
--- NOTE | 2018-04-12 08:57 | NEURO.PROG ---
Subjective Post Op Day: 10 Pain Management: PO Banks Catheter: No Flatus: Yes Diet: Regular Ambulating: Yes Additional Details: Awake and alert. Complaint of being cold/chills earlier this morning. Incision - clean/dry/intact. Flank redness unchanged, but less warm, still blanchable. Moving all extremities well. PLAN: 1.) Continue IV antibiotics. 2.) Repeat CBC tomorrow. 3.) Plan to discharge tomorrow with IV Rocephin and oral Clindamycin. Objective : Data - Labs CBC and BMP: 04/11/18 05:40 04/11/18 05:40 - Vital Signs Vital Signs and I&O: Vital Signs - Last Taken Temperature 97.9 F 04/12/18 07:33 Pulse Rate 53 L 04/12/18 07:33 Respiratory Rate 16 04/12/18 07:33 Blood Pressure 115/67 04/12/18 07:33 Pulse Ox 96 04/12/18 07:33 Intake and Output (24hr x 4 totals) 04/10/18 04/11/18 04/12/18 04/13/18 05:59 05:59 05:59 05:59 Intake Total 1270 / 1270 1355 / 1355 1585 / 1585 Balance 1270 / 1270 1355 / 1355 1585 / 1585
[2018-04-12] MEDS: RAMIPRIL 10 MG CAPSULE PO SCH ×2 (10:31→21:14)
[2018-04-12] MEDS: NYSTATIN 100000 UNIT/1 ML - 5 ML UD CUP PO SCH ×2 (10:32→21:14)
[2018-04-12] MEDS: EZETIMIBE 10 MG TABLET PO SCH (10:32)
[2018-04-12] MEDS: POTASSIUM CHLORIDE 20 MEQ TAB PO SCH ×2 (10:32→21:14)
[2018-04-12] MEDS: cefTRIAXone Inj 2 GM in Sodium Chloride 0.9% 100 ML IV SCH (11:14)
--- NOTE | 2018-04-12 11:17 | PDOC(PROG) ---
Interval History: Doing well no complaints no chest pain nausea or vomiting Objective : Data - Labs CBC and BMP: 04/11/18 05:40 04/11/18 05:40 Objective : Exam - General General Appearance: Cooperative - Respiratory Respiratory Exam: Clear to Auscultation - Bilaterally, Breathing Non Labored, Normal To Percussion, Normal to Percussion and Palpation - Cardiovascular Cardiovascular Exam: RRR, No Murmur, No Clicks, No Gallops, No Rubs, PMI Non- Displaced - GI/Abdominal GI/Abdominal Exam: Normal Bowel Sounds, Non Tender, Non Distended, Soft, No Masses, No Hepatomegaly, No Splenomegaly, No Organomegaly - Extremities Extremities Exam: No Clubbing Present, No Edema Present, No Cyanosis Present - Neurological Neurological Exam: Alert, Oriented x 3, No Facial Droop - Integumentary Additional Integumentary Exam Details: Cellulitis on her on his back mildly improved compared to yesterday no fevers Assessment and Plan - Patient Problems (1) Cellulitis of flank Current Visit: No Status: Acute Comment: Continue IV antibiotics Code(s): L03.312 - Cellulitis of back [any part except buttock] (2) Hypercholesterolemia Current Visit: No Status: Acute Code(s): E78.00 - Pure hypercholesterolemia, unspecified (3) Back pain Current Visit: No Status: Acute Code(s): M54.9 - Dorsalgia, unspecified Qualifiers: Back pain location: low back pain Chronicity: chronic Sciatica presence: unspecified whether sciatica present (4) Diabetes mellitus type II, controlled Current Visit: No Status: Acute Code(s): E11.9 - Type 2 diabetes mellitus without complications Qualifiers: Diabetes mellitus penitentiary insulin use: unspecified regulatory leader insulin use status Diabetes mellitus complication status: without complication Qualified Code(s): E11.9 - Type 2 diabetes mellitus without complications (5) Hypertension Current Visit: No Status: Acute Code(s): I10 - Essential (primary) hyperten jaci Qualifiers: Hypertension type: essential hypertension Qualified Code(s): I10 - Essential (primary) hypertension (6) Seronegative arthritis Current Visit: No Status: Acute Code(s): M13.80 - Other specified arthritis, unspecified site (7) Status post lumbar surgery Current Visit: No Status: Acute Code(s): Z98.890 - Other specified postprocedural states - Assessment / Plan Additional Assessment/Plan Details: Continue other medications for other medical issues
[2018-04-12] MEDS: INSULIN GLARGINE SUBCUT SCH (18:58)
[2018-04-12] MEDS: [UNRECOGNIZED DRUG - OTHER] SUBCUT SCH (18:58)
[2018-04-12] MEDS: NICOTINE 21 MG /DAY PATCH TRANSDERM SCH (18:59)
[2018-04-12] MEDS: Patch Removal PATCH TRANSDERM SCH (19:00)
[2018-04-12] MEDS: HEPARIN 500 UNIT/5 ML SYRINGE FOR CENTRAL LINE IVP PRN (19:00)
[2018-04-12 20:11] VITALS: RESP 20
[2018-04-12] MEDS: Simvastatin Tab 80 MG TAB PO SCH (21:14)
[2018-04-13] MEDS: Clindamycin 900mg (Premix) 900 MG/50 ML BAG IV SCH ×2 (01:30→06:04)
[2018-04-13] MEDS: HEPARIN 500 UNIT/5 ML SYRINGE FOR CENTRAL LINE IVP PRN (02:18)
[2018-04-13] MEDS: HYDROcodone-APAP 7.5 MG-325 MG TABLET PO PRN ×3 (02:22→11:20)
[2018-04-13 03:58] VITALS: O2SAT 96
[2018-04-13 04:51] LABS: BASOPHILS # (AUTO) 0.03 10*3/UL; BASOPHILS % (AUTO) 0.3 % (0-1); EOSINOPHILS # (AUTO) 0.17 10*3/UL; EOSINOPHILS % (AUTO) 1.7 % (0-8); Hematocrit [HCT] 42.4 % (42.0-52.0); Hemoglobin [HGB] 13.9 g/dL (14.0-18.0); LYMPHOCYTES # (AUTO) 2.64 10*3/uL; MEAN CORPUSCULAR HEMOGLOBIN 29.3 PG (27-31); MEAN CORPUSCULAR HGB CONC 32.8 g/dL (33-37); MEAN CORPUSCULAR VOLUME 89.5 FL (80-90); MEAN PLATELET VOLUME 9.9 FL (7.4-12.2); MONOCYTES # (AUTO) 0.76 10*3/UL (0.3-0.8); MONOCYTES % (AUTO) 7.6 % (5-15); NEUTROPHILS # (AUTO) 6.04 10*3/UL; NEUTROPHILS % (AUTO) 60.3 % (50-80); RED BLOOD COUNT 4.74 10^6/uL (4.70-6.10)
[2018-04-13 04:52] LABS: PLATELET MORPHOLOGY COMMENT NORMAL MORPHOLOGY (NORM); RBC MORPHOLOGY COMMENT NORMAL MORPHOLOGY (NORM); WBC MORPHOLOGY COMMENT NORMAL MORPHOLOGY (NORM)
[2018-04-13] MEDS: PANTOPRAZOLE 40 MG TABLET PO SCH (07:01)
--- NOTE | 2018-04-13 07:12 | NEURO.PROG ---
Subjective Post Op Day: 11 Pain Management: PO Diet: Regular Ambulating: Yes Additional Details: Mr. Hastings is awake and alert and feels ready to go home. He is afebrile, his incision is dry, intact and without erythema. His flank erythema persists but is improved. He has been up ambulating without difficulty. From a neuro standpoint he is ready to discharge. Objective : Data - Labs CBC and BMP: 04/13/18 04:20 04/11/18 05:40 - Vital Signs Vital Signs and I&O: Vital Signs - Last Taken Temperature 98.3 F 04/13/18 03:57 Pulse Rate 57 L 04/13/18 03:57 Respiratory Rate 20 04/13/18 03:57 Blood Pressure 133/80 04/13/18 03:57 Pulse Ox 96 04/13/18 03:57 Intake and Output (24hr x 4 totals) 04/11/18 04/12/18 04/13/18 04/14/18 05:59 05:59 05:59 05:59 Intake Total 1355 / 1355 1585 / 1585 955 / 955 75 / 75 Balance 1355 / 1355 1585 / 1585 955 / 955 75 / 75
[2018-04-13 07:16] VITALS: BP 113/76; TEMP 98
[2018-04-13] MEDS: cefTRIAXone Inj 2 GM in Sodium Chloride 0.9% 100 ML IV SCH (10:01)
[2018-04-13] MEDS: EZETIMIBE 10 MG TABLET PO SCH (10:02)
[2018-04-13] MEDS: NYSTATIN 100000 UNIT/1 ML - 5 ML UD CUP PO SCH (10:02)
[2018-04-13] MEDS: RAMIPRIL 10 MG CAPSULE PO SCH (10:02)
[2018-04-13] MEDS: POTASSIUM CHLORIDE 20 MEQ TAB PO SCH (10:03)
--- NOTE | 2018-04-13 10:11 | DCSUMMARY ---
Hospitalization Summary Hospital Course: Final Discharge Diagnosis: Flank cellulitis postop Diagnostic Data, Laboratory Data, and Procedures of Signifigance: Laboratory Results 04/13/18 04:20 WBC 10.01 RBC 4.74 Hgb 13.9 L Hct 42.4 MCV 89.5 MCH 29.3 MCHC 32.8 L RDW Std Deviation 42.1 RDW Coeff of Alexandra 13.1 Plt Count 379 H MPV 9.9 Immature Gran % (Auto) 3.7 Neut % (Auto) 60.3 Lymph % (Auto) 26.4 [place] % (Auto) 7.6 Eos % (Auto) 1.7 Baso % (Auto) 0.3 Immature Gran # (Auto) 0.37 Neut # (Auto) 6.04 Lymph # (Auto) 2.64 [place] # (Auto) 0.76 Eos # (Auto) 0.17 Baso # (Auto) 0.03 WBC Morphology Comment Normal morphology Plt Morphology Comment Normal morphology RBC Morph Comment Normal morphology History and Physical pertinent to Admission: Past Medical History Medical History: 1. History of diabetes been insulin since November last year. 2. History of hypertension. 3. History of hypercholesterolemia. 4. History of autoimmune disorder on Remicade infusion every 4 weeks, it sounded seronegative arthropathy Surgical History: 1. History of cholecystectomy. 2. History of carpal tunnel releases. 3. History of hernia surgery. 4. History of back surgery Family History: Reviewed an Not Pertinent Past Social History: He smokes 8 cigarettes a day, rarely drinks, no drugs. Lives in [place] Tobacco Use: Current Every Day Smoker Course of Hospitalization: This very nice 67-year-old gentleman from [place] with past medical history significant for hypertension, diabetes and, as a seronegative arthropathy on Remicade infusions monthly sees Dr. Guidry. Was admitted by Dr. Juárez for L4-5 transforaminal and post lateral instrumented fusion. Postop the hospitalist service was consulted for his hypertension and diabetes. On physical exam some redness was seen on the flanks and some discharge from the back incision. Dr. Juárez was notified by the hospitalist Dr. Juárez K specific orders to start vancomycin and Ancef later after ID consult and as per Dr. Jarrett antibiotics were switched to Rocephin since the cellulitis was not improving .turned out to be a cellulitis probably from group A strep as per infectious disease which HE saw in [place] on outpatient visit while here admitted they recommended he continue IV Rocephin and by mouth Clinda for a total of 10 days. He will get these infusions in [place] and a prescription for his by mouth Clinda was giving to him. casino gaming worker and nursing arranged his infusions in [place] on Saturday. By Dr. Engel I spoke to pending and she had told me that everything was arranged for him to go this Saturday in regards to his IV antibiotic infusion in [place]. His flank erythema still present but much improved. She has no complaints feels good was seen by the neurosurgical team this morning which cleared him to be discharged home. On the date of discharge, the patient was examined: Gen.: No acute distress, alert, nontoxic Heart: Regular rate and rhythm, no murmurs, clicks, gallops, or rubs Lungs: Clear to auscultation bilaterally, breathing is nonlabored Abdomen/GI: Normal tones on auscultation, soft, nontender, nondistended Musculoskeletal/extremities: No clubbing, cyanosis, or edema Bilateral flank erythema improved compared to yesterday and previous day Vitals reviewed and are listed below Assessment and Plan: 1. As per discharge assessments above 2. Disposition: Home 3. Condition on discharge, stable and improved. 4. Diet: regular diet 5. Activities: resume normal activities 6. Follow-Up: 1. PCP Dr. Engel 2. Dr. Juárez as arranged by the neurosurgical team 7. Medications at the Time of Discharge: Home Medications Medication Instructions Recorded Confirmed Type Lansoprazole [Prevacid] 30 mg ORAL QPM cap 12/28/10 04/10/18 History Ramipril [ALTACE] 10 mg ORAL BID cap 12/28/10 04/02/18 History Simvastatin [Zocor] 80 mg ORAL DAILY tab 12/28/10 04/02/18 History Ezetimibe [Zetia] 10 mg PO DAILY 01/12/11 04/02/18 History infliximab 100 mg intravenous 100 mg IV Q4W ea 01/28/18 04/02/18 History solution insulin glargine (U-100) 100 54 unit SUBCUT QDAY ml 03/25/18 04/02/18 History unit/mL (3 mL) subcutaneous pen Hydrocodone/Acetaminophen 1 tab PO PRN PRN 04/01/18 04/02/18 History [Hydrocodone-Acetamin 5-325 mg] Insulin Glargine,Hum.rec.anlog 54 unit SQ DAILY 04/02/18 04/02/18 History [Basaglar Severianoikpen U-100] Clindamycin HCl 450 mg PO QID 10 Days #40 cap 04/12/18 Rx Nystatin Susp [Mycostatin Susp] 500,000 unit PO BID #1 cp 04/12/18 Rx cefTRIAXone Inj [Rocephin Inj] 2 gm IV Q24H vial 04/12/18 Rx he will get this infusion in [place] and has been arranged by Soraida Cole Clindamycin HCl [Cleocin HCl] 450 mg PO TID #30 cap 04/13/18 Rx was given to him in hand 8. Time, care, counseling and coordination of care for this discharge is greater than 30 minutes. Exam - Vitals Vital Signs: Vital Signs Temperature 98 F Temperature Source Oral Pulse Rate [Pulse Oximeter] 53 Pulse Rate 72 Respiratory Rate 20 Blood Pressure [Right Arm] 138/71 Blood Pressure [Left Arm] 113/76 Blood Pressure 106/81 Pulse Ox 96 Oxygen Flow Rate 97 Oxygen Delivery Method Room Air Height 5 ft 8 in Weight 188 lb 3.2 oz Patient Problems - Patient Problem List (1) Cellulitis of flank Current Visit: No Status: Acute Code(s): L03.312 - Cellulitis of back [any part except buttock] Category: Medical (2) Hypercholesterolemia Current Visit: No Status: Acute Code(s): E78.00 - Pure hypercholesterolemia, unspecified Category: Medical (3) Back pain Current Visit: No Status: Acute Code(s): M54.9 - Dorsalgia, unspecified Qualifiers: Back pain location: low back pain Chronicity: chronic Sciatica presence: unspecified whether sciatica present Category: Medical (4) Diabetes mellitus type II, controlled Current Visit: No Status: Acute Code(s): E11.9 - Type 2 diabetes mellitus without complications Qualifiers: Diabetes mellitus shelter insulin use: unspecified remote computer terminal operator insulin use status Diabetes mellitus complication status: without complication Qualified Code(s): E11.9 - Type 2 diabetes mellitus without complications Category: Medical (5) Hypertension Current Visit: No Status: Acute Code(s): I10 - Essential (primary) hypertension Qualifiers: Hypertension type: essential hypertension Qualified Code(s): I10 - Essential (primary) hypertension Category: Medical (6) Seronegative arthritis Current Visit: No Status: Acute Code(s): M13.80 - Other specified arthritis, unspecified site Category: Medical (7) Status post lumbar surgery Current Visit: No Status: Acute Code(s): Z98.890 - Other specified postprocedural states Category: Surgical
[2018-04-13] MEDS ORDERED: HYDROcodone-APAP 7.5 MG-325 MG TABLET PO SCH (11:15)
--- NOTE | 2018-04-14 11:56 | PT AM DAY ---
Diagnosis : Lumbar Fusion AM - Physical Therapy S: The patient reports he is frustrated that he is still here in the hospital and is ready to go home; however, he is limited due to his infection. O: Today's therapy consisted of the patient ambulating all the way downstairs to therapy where he performed functional activities of the NuStep and the arm bike only followed by ambulating back up to his room. A: The patient was not willing to participate in any other activities and is beginning to be frustrated that he is still in the hospital. P: Continue seeing patient BID during the week and one time per day over the weekend for transfers, ambulation, and range of motion/strengthening exercises. MTDD
== END 2018-04-13 11:58 | disposition home or self-care (01) | DRG 454 ==
LOC: OPS 05:16 → MED/SURG 14:40
PROVIDERS: ADMIT Neurological Surgery; ATTEND Neurological Surgery

== ENCOUNTER 2018-06-06 11:34 | Inpatient (IN) ==
[~2018-06-06 11:34] MED LIST: LIDOCAINE W/ SODIUM BICARB 0.5 ML SYR SUBD ONE; Lactated Ringers 1,000 ML PRIMARY IV ONE; Nasal Sanitizer POPSWAB ampule 3 AMP (Nozin) PREOP DOSE ENOS SCH
[2018-06-06] MEDS ORDERED: Lactated Ringers 1,000 ML PRIMARY IV ONE (11:49)
[2018-06-06] MEDS ORDERED: LIDOCAINE W/ SODIUM BICARB 0.5 ML SYR ONE (11:49)
[2018-06-06] MEDS ORDERED: Gentamicin Inj 40 MG/ML VIAL ONE ×2 (12:37→14:44)
[2018-06-06] MEDS ORDERED: Vancomycin Inj 1gm vial ONE ×2 (12:37→14:44)
[2018-06-06] MEDS ORDERED: Sodium Chloride 0.9% vial 20 ML ONE ×2 (12:37→14:44)
[2018-06-06] MEDS ORDERED: Sodium Chloride 0.9% vial 10 ML ONE (12:38)
[2018-06-06] MEDS ORDERED: BACITRACIN 50,000 UNIT VIAL IRRIG ONE ×3 (12:38→14:45)
[2018-06-06] MEDS ORDERED: PROPOFOL 10 MG/1 ML (200 MG/20 ML) VIAL IV ONE ×2 (13:54→13:55)
[2018-06-06] MEDS ORDERED: ROCURONIUM 10 MG/1 ML - 5 ML VIAL IVP ONE (13:58)
[2018-06-06] MEDS ORDERED: SUCCINYLCHOLINE CHLORIDE 20 MG/1 ML - 10 ML ONE (13:58)
[2018-06-06] MEDS ORDERED: KETOROLAC 30 MG/1 ML VIAL ONE (14:00)
[2018-06-06] MEDS ORDERED: fentaNYL Inj 100 MCG/2 ML VIAL ONE (14:01)
--- NOTE | 2018-06-06 16:08 | CRNA.PROGR ---
Anesthesia Time - Procedure/Recovery Time Start Date: 06/06/18 End Date: 06/06/18 Anesthesia : Time In: 14:01 Anesthesia : Time Out: 16:07 Anesthesia : Total Time: 126 - Total Anesthesia Time Total Anesthesia Time (minutes): 126 - Other Weight: 84.822 kg Height: 5 ft 8 in Body Mass Index (BMI): 28.4 Physical Status: P3 Anesthesia Type: General Anesthesia : ET (stable at patient handoff/and at DC to floor)
[2018-06-06] MEDS ORDERED: ONDANSETRON 4 MG/2 ML VIAL IVP PRN ×2 (16:09→17:11)
[2018-06-06] MEDS ORDERED: LIDOCAINE W/ SODIUM BICARB 0.5 ML SYR SUBD PRN (16:09)
[2018-06-06] MEDS ORDERED: fentaNYL Inj 100 MCG/2 ML VIAL IVP PRN (16:09)
--- NOTE | 2018-06-06 16:11 | CRNA.PROGR ---
Anesthesia Recovery Phase I - Post Anesthesia Evaluation Patient's Condition on Arrival in Phase I: Stable Patient's Condition on Arrival in Phase II: Stable Pain Level: 5
--- NOTE | 2018-06-06 16:26 | GEN.OPNOTE ---
Operative Note Surgery Date: 06/06/18 Preoperative Diagnosis: Superficial surgical site wound infection/MRSA Postoperative Diagnosis: Superficial surgical site wound infection/MRSA Surgeon: Matthew Juárez MD Anesthesia Provider: Erik Flaherty MD Anesthesia Type: General Estimated Blood Loss (mL): 10 Fluids: See anesthesia record Pathology: Cultures sent to lab Indications: Mr. Hastings is status post an L4-5 transforaminal lumbar interbody and posterolateral instrumented fusion. This procedure was performed on 04/02/18. He is two months out from his surgical procedure. He states he is having no leg pain. His only pain is at his surgical site. He presents Saturday for another post-operative visit and post-surgical wound check. Mr. Hastings has been seeing [facility] since his surgery. After his bree were removed, his lumbar wound dehisced. He has been going to the [facility] for daily wound dressings. He states he is feeling very weak and tired. He states his cultures came back MRSA positive. He presents today for irrigation and debridement of the surgical site and placement of a VAC dressing. Findings: Dehiscence of previously closed surgical site with underlying infection in the subcutaneous tissue cultured at outside facility to be MRSA Complications: None Operative Summary: Mr. Hastings was met in the preoperative area. His surgical history and physical in his chart was reviewed. The procedure to be performed was confirmed with him and this matched what was written on the patient's consent form. Any questions Mr. Hastings or his had were answered before he was brought back to the operating room suite. Mr. Hastings was brought back to the operating room suite and put under general anesthesia and intubated by the anesthesia staff. He had a Banks catheter damion sherman in his bladder for the procedure. Pneumatic compression hose were placed on his lower legs bilaterally. Mr. Hastings was carefully rolled over onto the Ankush surgical table with his arms gently positioned upwards with shoulders abducted less than 90. His arms were well-padded with foam padding atop of the padding the surgical armboards. The region of his chest and axilla was checked bilaterally to make sure that there were no pressure points over the region of the brachial plexus bilaterally. His nipples were checked to be below the chest pad of the Ankush table with no pressure points. All bony prominences were well padded. His Banks catheter was checked be free from kinks. His pneumatic compression hose were attached to a pneumatic compression devise. Mr. Hastings was prepped with Betadine paint. He was in the usual and standard fashion. He was already on Daptomycin IV for several days. He was not given any additional preoperative antibiotics. A standard surgical time-out was performed. The depths of the open/dehissed part of the incision was cultured, with two sets of cultures being obtained. The Ioban drape was opened around the incision from the patients recent surgery. The previous incision rostral to the dehissed area of the incision was completely opened as the tissue underneath the incision in this region was undermined. A small amount of the incision caudal to the dehissed area was opened, but this tissue appeared normal and was not undermined. The skin around the dehissed area was ellipsed out with the 10 blade scalpel. The surgical site was debrided with sharp dissection and by scraping with a Ramachandran elevator. After debriding the tissue remaining appeared to be healthy and viable. Inspection of the base of the debrided area demonstrated the tissue above the fascia to be completely intact with no sutures exposed. The site was then irrigated with a mix of hydrogen peroxide with chlorohexedine solution. The site was then pulse lavaged with 3 liters of a mixture of bacitracin/vancomycin/gentamicin solution. The site was irrigated again with a mix of hydrogen peroxide/chlorohexedine solution and then pulse lavaged with another 3 liters of bacitracin/vancomycin/gentamicin solution. A VAC dressing was then placed, with a trimmed white sponge placed at the base and a trimmed black sponge was placed over the white sponge. The occlusive dressing was then applied and the sponges were put to suction with the portable VAC suction device with good seal and no leak. All surgical drapes were removed from Mr. Hastings. He was carefully rolled over unto the PACU stretcher. He was awoken and extubated by the anesthesia staff. He was taken to the recovery room in stable condition. All surgical counts were reported as correct by the scrub and circulating personnel.
[2018-06-06] MEDS ORDERED: HYDROmorphone 2 MG/1 ML ONE (16:34)
[2018-06-06] MEDS: HYDROmorphone 2 MG/1 ML IVP PRN ×2 (16:35→16:45)
--- NOTE | 2018-06-06 16:47 | NEURO.PROG ---
Subjective Post Op Day: 0 Pain Management: PO Banks Catheter: No Diet: Regular Ambulating: Yes Additional Details: Awake and alert. Pre-operative dehiscence of incision/surgical site pain, replaced with burning sensation in same area. Moving all extremities well. PLAN: 1.) Transfer to med/surg floor when ready. 2.) Continue IV Daptomycin. 3.) Continue post-operative pain control. 4.) Mobilize. Objective : Data - Vital Signs Vital Signs and I&O: Vital Signs - Last Taken Temperature 97.8 F 06/06/18 16:05 Pulse Rate 71 06/06/18 16:25 Respiratory Rate 15 06/06/18 16:25 Blood Pressure 143/77 06/06/18 16:25 Pulse Ox 95 06/06/18 16:25 Intake and Output (24hr x 4 totals) 06/04/18 06/05/18 06/06/18 06/07/18 05:59 05:59 05:59 05:59 Intake Total 1300 / 1300 Output Total 100 / 100 Balance 1200 / 1200
[2018-06-06] MEDS ORDERED: MAGNESIUM 400 MG/5 ML - 30 ML (MILK OF MAGNESIA) PO PRN (17:11)
[2018-06-06] MEDS ORDERED: BISACODYL 5 MG TABLET PO PRN (17:11)
[2018-06-06] MEDS ORDERED: DOCUSATE 100 MG CAPSULE PO PRN (17:11)
[2018-06-06] MEDS ORDERED: MORPHINE SULFATE 2 MG/1 ML IVP PRN (17:11)
[2018-06-06] MEDS ORDERED: oxyCODONE/APAP 7.5/325 Tab 1 TAB TAB PO PRN (17:11)
[2018-06-06] MEDS ORDERED: oxyCODONE/APAP 10/325 Tab 1 EACH TAB PO PRN (17:11)
[2018-06-06] MEDS ORDERED: CYCLOBENZAPRINE 10 MG TABLET PO PRN (17:11)
[2018-06-06] MEDS ORDERED: HYDROcodone-APAP 10 MG-325 MG TABLET PO PRN (17:11)
[2018-06-06] MEDS ORDERED: PROMETHAZINE 25 MG/1 ML VIAL IM PRN (17:11)
[2018-06-06] MEDS ORDERED: Prochlorperazine Edisylate Inj 10mg/2ml vial IVP PRN (17:11)
[2018-06-06] MEDS ORDERED: MAGNESIUM CITRATE 296 ML SOLUTION PO PRN (17:11)
[2018-06-06] MEDS ORDERED: Ondansetron ODT Tab 4 MG TAB PO PRN (17:11)
[2018-06-06] MEDS ORDERED: Fleet Enema 133ml RECTAL PRN (17:11)
[2018-06-06] MEDS ORDERED: INFLIXIMAB 100 MG IV SCH (17:11)
[2018-06-06] MEDS ORDERED: Metoclopramide Inj 10 MG/2 ML VIAL IVP PRN (17:11)
[2018-06-06] MEDS ORDERED: HYDROcodone-APAP 7.5 MG-325 MG TABLET PO PRN (17:11)
--- NOTE | 2018-06-06 18:17 | CONSULT ---
Consult Note - Consult Consult Date: 06/06/18 Reason for Consult: PostOp Consulation : Neuro Requesting Physician: Dr. Juárez Primary Care Provider: NONE NONE - History of Present Illness History of Present Illness: This is a 67 years old male with medical history significant for history of diabetes, hypertension, connective tissue disease was on Remicade infusion and was stopped in February 2018 because of hin needing surgery, had back surgery in March 2018 this was complicated by cellulitis postsurgery was treated with IV antibiotics was on Rocephin and oral clindamycin. He said post surgery he had dehiscence of the wound was doing local treatment and been followed up by infectious disease in [place], he had a PICC line inserted on Saturday as a growth of MRSA was noted on culture. he came in today to have I&D with wound VAC application and was done by Dr. Juárez. The hospitalist service were consulted for management of medical issues. States he feels groggy otherwise he is denying other symptoms. No chest pain, no nausea no shortness of breath. No significant pain. Past Medical History Medical History: 1. History of diabetes been insulin since November last year. 2. History of hypertension. 3. History of hypercholesterolemia. 4. History of connective tissue disorder on Remicade infusion every 4 weeks, he was told it behaves like rheumatoid arthritis but without the markers last time he had infusion was February 2018. 5. Cellulitis post back surgery that he had in March 2018 was treated with IV Rocephin. Started on daptomycin on June 04 as growth from the wound showed MRSA. Surgical History: 1. History of cholecystectomy. 2. History of carpal tunnel releases. 3. History of hernia surgery. 4. History of back surgery Family History: Reviewed an Not Pertinent Past Social History: He smokes 8 cigarettes a day, rarely drinks, no drugs. Lives in [place] Tobacco Use: Current Every Day Smoker In the Past 12 Months, Have Used or Abuse Any of the Following Substance: None Review of Systems - Review of Systems All Systems: Reviewed & No Additional Complaints Except as Stated Medication / Allergies Home Medications: Home Medications Medication Instructions Recorded Confirmed Type Lansoprazole [Prevacid] 30 mg ORAL QPM cap 12/28/10 06/06/18 History Ramipril [ALTACE] 10 mg ORAL BID cap 12/28/10 06/06/18 History Simvastatin [Zocor] 80 mg ORAL DAILY tab 12/28/10 06/05/18 History Ezetimibe [Zetia] 10 mg PO DAILY 01/12/11 06/06/18 History infliximab 100 mg intravenous 100 mg IV Q4W ea 01/28/18 06/06/18 History solution insulin glargine (U-100) 100 54 unit SUBCUT QDAY ml 03/25/18 06/06/18 History unit/mL (3 mL) subcutaneous pen Nystatin Susp [Mycostatin Susp] 500,000 unit PO BID #1 cp 04/12/18 06/05/18 Rx cefTRIAXone Inj [Rocephin Inj] 2 gm IV Q24H vial 04/12/18 06/06/18 Rx Clindamycin HCl [Cleocin HCl] 450 mg PO TID #30 cap 04/13/18 06/05/18 Rx hydrocodone 7.5 mg-acetaminophen 2 tab PO Q4H PRN #80 tab 04/22/18 06/05/18 Rx 325 mg tablet Daptomycin [Cubicin Rf] 500 mg IV DAILY 06/05/18 06/05/18 History Allergies/Adverse Reactions: Allergies Allergy/AdvReac Type Severity Reaction Status Date / Time codeine [Codeine] Allergy Intermediate NAUSEA Verified 06/06/18 17:15 abatacept [From Orencia] Allergy Nausea Verified 06/06/18 17:15 CONTRAST DYE Allergy Intermediate Anaphylaxis Uncoded 06/06/18 17:15 Exam - Vitals Vital Signs: Vital Signs Temperature 97.3 F Temperature Source Temporal Artery Scan Pulse Rate [Pulse Oximeter] 73 Pulse Rate 75 Respiratory Rate 20 Blood Pressure [Left Arm] 136/86 Blood Pressure 150/87 Pulse Ox 91 Oxygen Flow Rate RA Oxygen Delivery Method Room Air Height 5 ft 8 in Weight 196 lb 11.2 oz - General General Appearance: No Acute Distress, Cooperative - Head Head Exam: Normal Inspection - Eye Eye Exam: POSITIVE: Normal Appearance - ENT ENT Exam: POSITIVE: Normal Exam - Neck Neck Exam: Normal Inspection - Respiratory Respiratory Exam: POSITIVE: Clear to Auscultation - Bilaterally - Cardiovascular Cardiovascular Exam: POSITIVE: RRR - GI/Abdominal GI/Abdominal Exam: POSITIVE: Normal Bowel Sounds, Non Tender, Non Distended, Soft, No Organomegaly - Rectal Rectal Exam: POSITIVE: Deferred - External Exam: POSITIVE: Deferred - Extremities Extremities Exam: POSITIVE: Normal Inspection - Back Additional Back Exam Details: Dressing applied to the back, wound VAC in place. - Psychiatric Psychiatric Exam: POSITIVE: Normal Affect - Integumentary Integumentary Exam: POSITIVE: Normal Color Assessment and Plan - Patient Problems (1) Wound infection Current Visit: Yes Status: Acute Comment: Management per Dr. Juárez, patient's currently on daptomycin. He will get it tomorrow. Code(s): T14.8XXA - Other injury of unspecified body region, initial encounter; L08.9 - Local infection of the skin and subcutaneous tissue, unspecified (2) History of hypertension Current Visit: No Status: Acute Comment: Continue his previous medications Code(s): Z86.79 - Personal history of other diseases of the circulatory system (3) Diabetes mellitus type II, controlled Current Visit: No Status: Acute Comment: Resume his medication will check his blood sugar before we give him his long-acting insulin. 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
[2018-06-06] MEDS: NICOTINE 21 MG /DAY PATCH TRANSDERM SCH (19:23)
[2018-06-06] MEDS: HYDROcodone-APAP 7.5 MG-325 MG TABLET PO PRN ×2 (19:23→23:27)
[2018-06-06] MEDS: RAMIPRIL 10 MG CAPSULE PO SCH (20:20)
[2018-06-06] MEDS: Simvastatin Tab 80 MG TAB PO SCH (20:21)
[2018-06-06] MEDS: NYSTATIN 100000 UNIT/1 ML - 5 ML UD CUP PO SCH (20:21)
[2018-06-06] MEDS ORDERED: Insulin Glargine SoloStar Inj 100 UNIT/ML INSULN.PEN SUBCUT SCH (21:00)
[2018-06-07] MEDS: HYDROcodone-APAP 7.5 MG-325 MG TABLET PO PRN ×4 (04:42→21:36)
[2018-06-07 05:19] LABS: BASOPHILS # (AUTO) 0.01 10*3/UL; BASOPHILS % (AUTO) 0.1 % (0-1); EOSINOPHILS # (AUTO) 0 10*3/UL; EOSINOPHILS % (AUTO) 0 % (0-8); Hematocrit [HCT] 43.4 % (42.0-52.0); Hemoglobin [HGB] 14.5 g/dL (14.0-18.0); LYMPHOCYTES # (AUTO) 1.26 10*3/uL; MEAN CORPUSCULAR HGB CONC 33.4 g/dL (33-37); MEAN CORPUSCULAR VOLUME 86.8 FL (80-90); MEAN PLATELET VOLUME 10.2 FL (7.4-12.2); MONOCYTES % (AUTO) 2.1 % (5-15); NEUTROPHILS # (AUTO) 12.42 10*3/UL; NEUTROPHILS % (AUTO) 88.3 % (50-80)
[2018-06-07 06:04] LABS: BLOOD UREA NITROGEN 21 mg/dL (7-22); BUN/CREATININE RATIO 23.33 (6-20)
[2018-06-07 06:33] LABS: PLATELET MORPHOLOGY COMMENT NORMAL MORPHOLOGY (NORM); RBC MORPHOLOGY COMMENT NORMAL MORPHOLOGY (NORM); WBC MORPHOLOGY COMMENT NORMAL MORPHOLOGY (NORM)
[2018-06-07] MEDS: PANTOPRAZOLE 40 MG TABLET PO SCH (06:48)
[2018-06-07] MEDS ORDERED: Insulin Lispro Flexpen 300 UNIT/3 ML INSULN.PEN SUBCUT SCH (07:00)
[2018-06-07] MEDS ORDERED: Simvastatin Tab 80 MG TAB PO SCH (09:00)
[2018-06-07] MEDS ORDERED: Insulin Glargine SoloStar Inj 100 UNIT/ML INSULN.PEN SUBCUT SCH ×2 (09:00→21:00)
[2018-06-07] MEDS: EZETIMIBE 10 MG TABLET PO SCH (09:02)
[2018-06-07] MEDS: NYSTATIN 100000 UNIT/1 ML - 5 ML UD CUP PO SCH ×2 (09:02→19:59)
[2018-06-07] MEDS: RAMIPRIL 10 MG CAPSULE PO SCH ×2 (09:03→19:59)
[2018-06-07] MEDS: DAPTOmycin 500 MG VIAL IV SCH (09:04)
--- NOTE | 2018-06-07 10:20 | NEURO.PROG ---
Subjective Post Op Day: 1 Pain Management: PO Banks Catheter: No Flatus: Yes Diet: Regular Ambulating: Yes Additional Details: Awake and alert. VAC system failure last evening. VAC dressing removed and replaced by PT this morning; system working well with no leaks. Requested IV fluids stopped so he doesn't have to urinate so frequently. Requested compression hose be discontinued as they are uncomfortable and he has sensitive skin. PLAN: 1.) Continue VAC to suction. 2.) Continue Daptomycin. 3.) Continue to mobilize. Objective : Data - Labs CBC and BMP: 06/07/18 04:30 06/07/18 04:30 - Vital Signs Vital Signs and I&O: Vital Signs - Last Taken Temperature 97.4 F 06/07/18 08:49 Pulse Rate 72 06/07/18 08:49 Respiratory Rate 20 06/07/18 08:49 Blood Pressure 133/85 06/07/18 08:49 Pulse Ox 93 06/07/18 08:49 Intake and Output (24hr x 4 totals) 06/05/18 06/06/18 06/07/18 06/08/18 05:59 05:59 05:59 05:59 Intake Total 3805 / 3805 550 / 550 Output Total 1500 / 1500 250 / 250 Balance 2305 / 2305 300 / 300
--- NOTE | 2018-06-07 10:38 | PDOC(PROG) ---
Date of Service: 06/07/18 Time of Service: 10:30 Interval History: Subjective Pain seemed to be controlled. He was walking around. No issues. He was drinking 7-Up in the morning and his blood sugar went up. Objective : Data - Labs CBC and BMP: 06/07/18 04:30 06/07/18 04:30 Objective : Exam - General General Appearance: No Acute Distress, Cooperative - Head Head Exam: Normal Inspection - Eye Eye Exam: Normal Appearance - ENT ENT Exam: Normal Exam - Neck Neck Exam: Normal Inspection - Respiratory Respiratory Exam: Clear to Auscultation - Bilaterally - Cardiovascular Cardiovascular Exam: RRR - GI/Abdominal GI/Abdominal Exam: Normal Bowel Sounds, Non Tender, Non Distended, Soft, No Organomegaly - Rectal Rectal Exam: Deferred - External Exam: Deferred - Extremities Extremities Exam: Normal Inspection - Neurological Neurological Exam: Alert, Oriented x 3, CN II-XII Intact, No Facial Droop, Speech Intact / Clear - Psychiatric Psychiatric Exam: Normal Affect Assessment and Plan - Patient Problems (1) Wound infection Current Visit: Yes Status: Acute Comment: Status post I&D. He is on daptomycin continue Code(s): T14.8XXA - Other injury of unspecified body region, initial encounter; L08.9 - Local infection of the skin and subcutaneous tissue, unspecified (2) History of hypertension Current Visit: No Status: Acute Comment: Same medication Code(s): Z86.79 - Personal history of other diseases of the circulatory system (3) Diabetes mellitus type II, controlled Current Visit: No Status: Acute Comment: Blood sugar was elevated this morning because of his diet, he was counseled, we added sliding scale. Code(s): E11.9 - Type 2 diabetes mellitus without complications Qualifiers: Diabetes mellitus intermodal dispatcher insulin use: unspecified senior living insulin use status Diabetes mellitus complication status: without complication Qualified Code(s): E11.9 - Type 2 diabetes mellitus without complications (4) Hypercholesterolemia Current Visit: No Status: Acute Comment: Same med Code(s): E78.00 - Pure hypercholesterolemia, unspecified (5) GERD (gastroesophageal reflux disease) Current Visit: Yes Status: Acute Comment: Same med Code(s): K21.9 - Gastro-esophageal reflux disease without esophagitis
[2018-06-07] MEDS: Insulin Lispro Flexpen 300 UNIT/3 ML INSULN.PEN SUBCUT SCH ×2 (11:10→16:35)
[2018-06-07] MEDS: NICOTINE 21 MG /DAY PATCH TRANSDERM SCH (11:10)
[2018-06-07] MEDS: Simvastatin Tab 80 MG TAB PO SCH (20:00)
[2018-06-07] MEDS ORDERED: OMEPRAZOLE 20 MG CAPSULE PO SCH (21:00)
[2018-06-08 04:22] VITALS: RESP 16
--- NOTE | 2018-06-08 07:13 | NEURO.PROG ---
Subjective Post Op Day: 2 Pain Management: PO Banks Catheter: No Flatus: Yes Diet: (Consistent carbohydrate) Ambulating: Yes Additional Details: Mr. Hastings is awake and alert and feels ready to discharge home. He has been up and around without difficulty. V/S are stable. He says he worked with Nathalie from yesterday on his wound vac and feels comfortable with going home. He will follow up in the [facility] for his wound vac and with Dr. Juárez and [facility]. He was again counselled on activity, smoking and glucose control and he displayed understanding of their impact on wound healing. Plan: Discharge home today. Antibiotics and wound vac care have been set up in [place]. Follow up in Dr. Juárez's [place] clinic. Objective : Data - Labs CBC and BMP: 06/07/18 04:30 06/07/18 04:30 - Vital Signs Vital Signs and I&O: Vital Signs - Last Taken Temperature 98.7 F 06/08/18 04:19 Pulse Rate 59 L 06/08/18 04:19 Respiratory Rate 16 06/08/18 04:19 Blood Pressure 140/78 06/08/18 04:19 Pulse Ox 97 06/08/18 04:19 Intake and Output (24hr x 4 totals) 06/06/18 06/07/18 06/08/18 06/09/18 05:59 05:59 05:59 05:59 Intake Total 3805 / 3805 1840 / 1840 Output Total 1500 / 1500 1500 / 1500 Balance 2305 / 2305 340 / 340
[2018-06-08] MEDS: PANTOPRAZOLE 40 MG TABLET PO SCH (07:31)
[2018-06-08] MEDS: HYDROcodone-APAP 7.5 MG-325 MG TABLET PO PRN (07:32)
[2018-06-08 07:39] VITALS: BP 149/89; TEMP 97; O2SAT 96
[2018-06-08] MEDS: Insulin Lispro Flexpen 300 UNIT/3 ML INSULN.PEN SUBCUT SCH (07:47)
--- NOTE | 2018-06-08 07:57 | PDOC(PROG) ---
Date of Service: 06/08/18 Time of Service: 08:00 Interval History: Subjective Patient denying new symptoms. He is going to be the discharge today. Objective : Data - Labs CBC and BMP: 06/07/18 04:30 06/07/18 04:30 Objective : Exam - General General Appearance: No Acute Distress, Cooperative - Head Head Exam: Normal Inspection - Eye Eye Exam: Normal Appearance - ENT ENT Exam: Normal Exam - Neck Neck Exam: Normal Inspection - Respiratory Respiratory Exam: Clear to Auscultation - Bilaterally - Cardiovascular Cardiovascular Exam: RRR - GI/Abdominal GI/Abdominal Exam: Normal Bowel Sounds, Non Tender, Non Distended, Soft, No Organomegaly - Rectal Rectal Exam: Deferred - External Exam: Deferred - Extremities Extremities Exam: Normal Inspection - Back Additional Back Exam Details: Dressing applied to the back. Wound VAC in place. - Neurological Neurological Exam: Alert, Oriented x 3, CN II-XII Intact, No Facial Droop, Speech Intact / Clear - Psychiatric Psychiatric Exam: Normal Affect Assessment and Plan - Patient Problems (1) Wound infection Current Visit: Yes Status: Acute Comment: Patient will be discharged today, continue IV antibiotics as an outpatient being followed up by ID. patient requested nystatin treatment which was started here by Dr. Juárez will write a prescription for him. Code(s): T14.8XXA - Other injury of unspecified body region, initial encounter; L08.9 - Local infection of the skin and subcutaneous tissue, unspecified (2) History of hypertension Current Visit: No Status: Acute Comment: Same med Code(s): Z86.79 - Personal history of other diseases of the circulatory system (3) Diabetes mellitus type II, controlled Current Visit: No Status: Acute Comment: Same medications. 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
[2018-06-08] MEDS: RAMIPRIL 10 MG CAPSULE PO SCH (09:15)
[2018-06-08] MEDS: NYSTATIN 100000 UNIT/1 ML - 5 ML UD CUP PO SCH (09:15)
[2018-06-08] MEDS: NICOTINE 21 MG /DAY PATCH TRANSDERM SCH (09:15)
[2018-06-08] MEDS: DAPTOmycin 500 MG VIAL IV SCH (09:16)
[2018-06-08] MEDS: EZETIMIBE 10 MG TABLET PO SCH (09:17)
[2018-06-08] MEDS ORDERED: HEPARIN 500 UNIT/5 ML SYRINGE FOR CENTRAL LINE IVP ONE ×2 (09:33→09:35)
--- NOTE | 2018-06-08 10:54 | OT.PROG ---
Progress Note Progress Note: S: pt reported that his wound vac felt very good today and that he was ready to go home. O: tx consisted of functional ambulation x300' independently, dynamic standing exercises with functional reaching, education of wound vac. A: pt tolerated session well. P: continue POC until discharge.
--- NOTE | 2018-06-09 09:54 | PTI REPORT ---
Thank you for the referral of Stephen Hastings. He was seen on 06/07/18 for an inpatient evaluation secondary to an I&D from a previous laminectomy that he had in March. SUBJECTIVE: The patient is a 67-year-old male who underwent an I&D from a previous laminectomy. Per patient report, he is positive for MRSA and does have a PICC line in place. A wound vac was placed following surgery but per nursing report the wound vac started beeping quite a bit last night and so they did shut the vac off and it has been leaking and they are unsure what to do with the vac and would like that checked out. The doctor is supposed to be coming later, but every time the patient moves, quite a bit of drainage is present. The patient states that he has been up with nursing staff and walking which is going well. He is no longer using a walker to get around and states that he has been going out for walks in the park. His biggest complaint has been with the infection that he has had. He states that he did have a PICC line put in on Saturday. The patient had undergone a lumbar fusion in March of 2018. He did have some complications of cellulitis post surgery but otherwise had been doing fairly well and denies any numbness or tingling into his legs anymore. The patient's is present during our evaluation. They live in [place] and the patient has been doing well with his transfers and mobility since being home from his last surgery. PAST MEDICAL HISTORY: Past medical history can be found in the patient's medical record. OBJECTIVE FINDINGS: General observations: The patient is alert and oriented to setting upon PT arrival. He is frustrated as he didn't sleep much last night due to the wound vac draining and all the drainage. He is concerned with the amount of drainage from the dressing that is in place. The patient does have a large ABD pad on his back. You can tell that there is drainage coming out from the side and quite a bit of drainage on the pads on his bed. The wound vac was in an off position, but the wound vac dressing was still in place. The therapist did discuss with nursing staff that if the wound vac is going to be turned off, the dressing cannot remain in place as this is inappropriate. Wound care: We did get the patient onto his tummy and removed the dressing. He did have copious amounts of serosanguineous drainage present and also some blood clot areas, which may have been why the vac wasn't working properly. We did clean all of this out and removed the old wound vac dressing change. At this time Dr. Juárez did come in. He did inspect the wound and everything was looking good. The therapist did place the wound vac dressing on for the patient. We did place the white foam first per Dr. Juárez's orders, then placed the black foam over top, then secured the wound vac in place, and changed out the canister. The therapist did educate the on how to properly change the canister as well as he does have a follow up on Saturday but it may need to be changed before that. We will check on that as well. The patient's demonstrated that she understood how to properly change the wound vac canister. The patient is scheduled up in [place] for an appointment to have the wound vac changed on Saturday. Bed mobility/Transfers: The patient was able to transfer from seated to prone and from prone back up to a standing position. Ambulation: The patient was able to ambulate a lap around the nurse's station after wound vac was secure. ASSESSMENT: The patient has good rehab potential. The therapist did notify nursing staff to call if there was any questions or concerns with the wound vac. Problem List: Checking on wound vac to make sure everything is going well Mobilization post surgery Short-Term Goals: To be met by discharge from inpatient: Patient's will be comfortable with changing out canisters. Patient's wound vac will remain secure. Patient will be able to ambulate at least 150 feet safely and independently. Patient will be able to ascend and descend at least 5 stairs independently to return home. Long-Term Goals: To be met following discharge from inpatient: Patient will undergo wound vac dressing changes and continue seeing Dr. Juárez as they work through this I&D. TREATMENT PLAN: Patient will be seen one time today and one time tomorrow. The patient most likely will discharge after therapy tomorrow morning. Our goal for tomorrow is just to make sure the patient is ambulating and that the wound vac remains in place and is working properly. INITIAL TREATMENT: Treatment today consisted of the initial evaluation activities only. LITTLE
== END 2018-06-08 12:16 | disposition home or self-care (01) | DRG 857 ==
LOC: OPS 11:34 → EDSTATUS 14:00 → MED/SURG 17:03
PROVIDERS: ADMIT Neurological Surgery; ATTEND Neurological Surgery